=== PATIENT | male | born 1965 | race Caucasian/White ===

== ENCOUNTER → 2020-06-07 09:53 | Outpatient (BNVA) | payer MEDICARE, MEDICAID, SELFPAY | PROVIDERS: PCP Internal Medicine; Referring Provider Internal Medicine; Visit Provider Physician Assistant | DX: K59.09 Other constipation (principal); Z80.0 Family history of malignant neoplasm of digestive organs | CPT/HCPCS: 99212 ==

== ENCOUNTER → 2020-10-30 10:56 | Outpatient (BNVA) | payer MEDICARE, MEDICAID, SELFPAY | PROVIDERS: PCP Internal Medicine; Visit Provider Physician Assistant | DX: Z13.89 Encounter for screening for other disorder (principal) | CPT/HCPCS: Q3014 ==

== ENCOUNTER → 2021-11-19 11:43 | Outpatient (BNVA) | payer MEDICARE, MEDICAID, SELFPAY | PROVIDERS: PCP Internal Medicine; Referring Provider Internal Medicine; Visit Provider Physician Assistant | DX: K59.09 Other constipation (principal) | CPT/HCPCS: 99212 ==

== ENCOUNTER 2022-11-07 10:37 | Outpatient (RCR) | payer MEDICARE, MEDICAID, SELFPAY | END 2022-12-27 14:08 | disposition home or self-care (01) | LOC: HO.WCC 10:37 | PROVIDERS: PCP Internal Medicine; Visit Provider Surgery | DX: L89.153 Pressure ulcer of sacral region, stage 3 (principal); L89.313 Pressure ulcer of right buttock, stage 3; G80.9 Cerebral palsy, unspecified | CPT/HCPCS: 97597; 99212; 99213 ==

== ENCOUNTER → 2023-01-08 14:11 | Outpatient (BNVA) | payer MEDICARE, MEDICAID, SELFPAY | PROVIDERS: PCP Internal Medicine; Visit Provider Physician Assistant | DX: K59.09 Other constipation (principal) | CPT/HCPCS: 99212 ==

== ENCOUNTER 2023-09-15 11:12 | Outpatient (REF) | payer MEDICARE, MEDICAID, SELFPAY ==
[2023-09-16 08:28] LABS: HIV AB/AG Nonreactive (Nonreactive); HIV Num 1 0.07 S/CO (0.00-0.99); ~HepC Num1 0.17 S/CO (0.00-0.79); ~Hepatitis C Antibody Nonreactive (Nonreactive)
== END 2023-09-15 11:13 | disposition home or self-care (01) ==
LOC: HO.CHCLDS 11:12
PROVIDERS: Visit Provider Internal Medicine
DX: Z00.00 Encounter for general adult medical examination without abnormal findings (principal); Z11.4 Encounter for screening for human immunodeficiency virus [HIV]
CPT/HCPCS: 36415; 86803; 87389

== ENCOUNTER 2023-09-17 14:40 | Outpatient (AMB) | payer MEDICARE, MEDICAID, SELFPAY ==
--- NOTE | 2023-09-17 14:42 | MHC.OFFVIS ---
Intake Vital Signs 09/17/23 14:50 09/17/23 14:56 Height 5 ft 8 in 5 ft 8 in Weight 166 lb 166 lb BMI 25.2 25.2 BP 138/81 138/81 Blood Pressure Location Lt brachial Lt brachial Position Sitting Sitting Pulse 70 70 Intake Visit Reasons: Chronic Constipation Intake Note: Patient is seen in office for follow up visit, following chronic constipation. Pt c/o: since last visit pt is having normal bm, going one/two times daily Club Steward Required: No Accompanied by: Self / Same As Patient Allergies bee pollen [BEE STINGS] Allergy (Severe, Unverified 09/17/23 14:50) ANAPHYLAXIS bee stings Allergy (Unknown, Uncoded 09/17/23 14:50) Anaphylaxis Medication List - Last Reconciled 09/17/23 by Shannan Blanco PA-C acetaminophen ER 650 mg PO TID B comp we9-xahcy-J-biotin-zinc 1-60-300-12.5 qj-no-hvo-mg tabs PO clonazepam 0.5 mg PO BID PRN divalproex 500 mg PO TID docusate sodium (DOK) 0 mg PO epinephrine 0.3 mg IM Q4H PRN fluvoxamine ER 200 mg PO BEDTIME food supplemt, lactose-reduced (Ensure High Protein oral liquid) ea PO guaifenesin 400 mg PO Q4H haloperidol 5 mg PO BID lactulose PO linaclotide (Linzess) 290 mcg PO QAM magnesium hydroxide (Milk of Magnesia) 400 mg PO DAILY PRN melatonin 10 mg PO BEDTIME PRN omeprazole 20 mg PO DAILY polyethylene glycol 3350 (Miralax) 17 grams PO BID psyllium 1 packet PO DAILY psyllium seed (sugar) (Metamucil (sugar) oral powder) 1 tbsp PO DAILY sennosides (senna) 0 mg PO DAILY sertraline 50 mg PO DAILY sodium phosphates 19-7 gram/118 mL (Fleet Enema) 118 mL NM DAILY PRN vitamin B complex (Vitamins B Complex capsule) 1 cap PO DAILY HPI HPI Comments History of Present Illness Details 58-year-old male TBI- seen last 12/2022 with chronic constipation- he has had normal bowel once maybe 2 x a day- He had had some loose stool however lactulose was discontinued and has been on issue. Has no rectal bleeding. Taking Linzess, bowel regimen in place Appetite has been good No GI concerns- eating very well- We had the Cologuard 03/2023 He is here today with patient advocate, very supportive [facility] Medical History (Updated 09/18/23 @ 10:12 by Shannan Blanco PA-C) Assistance needed for ambulation and movement Dysphagia Chronic constipation OCD (obsessive compulsive disorder) Anxiety Delayed emotional development Surgical History (Updated 09/17/23 @ 14:46 by Shannan Blanco PA-C) Hx of colonoscopy No significant past surgical history Family History Unknown No problems noted. Social History Household Members: Other Household Members Other:: Longterm Housing Other:: Longterm Are you a primary managed care manager to a significant other at home: No Do you presently have visiting nurse or other home services: No Alcohol intake: never Current occupational status: disabled Review of Systems Const Details: Pt advocate All systems reviewed & are unremarkable except as noted in HPI and below Physical Exam Vital Signs: Last Vital Signs Pulse 70 09/17/23 14:56 BP 138/81 09/17/23 14:56 BMI result Body Mass Index 25.2 Const General: comfortable and well groomed Limitations: altered mental status and wheelchair Skin General skin exam: no rashes or lesions noted Psych Appearance: well kempt Assessment & Plan Assessment & Plan (1) Chronic constipation: Comment: Linzess 290 mcg-seems to have improved bowel routine however caretakers maintain a good bowel regimen-making sure it is adequate. No reported GI complaints Cologuard -negative Code(s): K59.09 - Other constipation (2) Screen for colon cancer: Code(s): Z12.11 - Encounter for screening for malignant neoplasm of colon Plan: Cologuard was negative Plan Continue plan of care may call with any concerns- Patient does not have to be brought into the office as he is unable to provide input. Discuss with advocate- Patient Instructions: Wheelchair assisted 58-year-old Gent-TBI- Continue usual medication-seems to be well managed Maintain high-fiber diet May call with any concerns- Coding Level of Care Code Est Pt Level 3 (34959) Diagnoses Chronic constipation K59.09 Screen for colon cancer Z12.11 Time Spent (min) 20 Comment Patient advocate, support
[2023-09-17 14:50] VITALS: BP 138/81; PULSE 70; BMI 25.2
[2023-09-17 14:56] VITALS: BP 138/81; PULSE 70; BMI 25.2
== END 2023-09-17 15:25 | disposition home or self-care (01) ==
PROVIDERS: PCP Internal Medicine; Visit Provider Physician Assistant
DX: K59.09 Other constipation (principal); Z12.11 Encounter for screening for malignant neoplasm of colon
CPT/HCPCS: 99213

== ENCOUNTER → 2023-09-17 14:40 | Outpatient (BNVA) | payer MEDICARE, MEDICAID, SELFPAY | PROVIDERS: PCP Internal Medicine; Visit Provider Physician Assistant | DX: Z12.11 Encounter for screening for malignant neoplasm of colon (principal); K59.09 Other constipation | CPT/HCPCS: 99212 ==

== ENCOUNTER 2023-09-23 11:39 | Outpatient (REF) | payer MEDICARE, MEDICAID, SELFPAY ==
[2023-09-23 14:24] LABS: Appearance Urine Clear; Color Urine Yellow; Glucose Urine UA Negative (Negative); Leukocyte Esterase Urine Negative (Negative); Nitrite Urine Negative (Negative); Urine Blood Negative (Negative); Urine Ketones Negative (Negative); Urine Protein Negative (Neg-Trace)
[2023-09-23 14:29] LABS: Bacteria Urine None Seen (None Seen); Hyaline Casts Urine 0-2 /LPF (0-2); RBC Urine 0-2 /HPF (0-2); Squamous Epithelial Cell Urine 0-2 /HPF (0-2); WBC Urine 0-5 /HPF (0-5)
[2023-09-23 18:13] LABS: Anion Gap 12 (12-20); Blood Urea Nitrogen 16 mg/dL (9-16); Calcium 8.5 mg/dL (8.4-10.2); Carbon Dioxide 26 mmol/L (22-29); Chloride 106 mmol/L (96-108); Estimated Glomerular Filt Rate > 60; Glucose Random 79 mg/dL (60-115); Sodium 140 mmol/L (135-145)
[2023-09-23 18:32] LABS: Prostate Specific Antigen Scr 0.45 ng/mL (<0.05-4.0)
[2023-09-24 09:18] LABS: HBS Num1 1.25 mIU/mL (0-7.99); HBc Num1 0.13 S/CO (0.00-0.79); Hepatitis B Core Antibody Nonreactive (Nonreactive); ~Hepatitis B Surface Antibody NONREACTIVE (Nonreactive)
== END 2023-09-23 11:40 | disposition home or self-care (01) ==
LOC: HO.CHCLNP 11:39
PROVIDERS: Visit Provider Internal Medicine
DX: Z00.00 Encounter for general adult medical examination without abnormal findings (principal); Z12.5 Encounter for screening for malignant neoplasm of prostate; Z11.59 Encounter for screening for other viral diseases; R35.0 Frequency of micturition; G80.4 Ataxic cerebral palsy; G80.1 Spastic diplegic cerebral palsy; G25.9 Extrapyramidal and movement disorder, unspecified; Z72.89 Other problems related to lifestyle
CPT/HCPCS: 36415; 80048; 81001; 83735; 84153; 86704; 86706

== ENCOUNTER 2024-09-16 10:57 | Outpatient (REF) | payer MEDICARE, MEDICAID, SELFPAY ==
--- OUTSIDE RECORDS SUMMARY | 2024-09-16 13:04 | XMS_ITS | Encounter Summary ---
Author Organization [employer] Address [address] [place] [address] Care Team Providers Care Dial Brusher Name Role Phone Jose Perry MD Primary Care Provider [phone]- [phone] Reason for Visit * Reason Onset Date Comments ER Follow-up 02/18/2023 Encounter Details Date Type Department Care Team ([facility] st Contact Info) Description 02/18/2023 Telephone [facility] CHC MED & PEDS [address] [place], [place] [phone] Jose Perry MD [address] [place] [address] ER Follow-up Social History Tobacco Use Types Packs/Day Years Used Date Smoking Tobacco: Never Smokeless Tobacco: Never Sex and Gender Information Value Date Recorded Sex Assigned at Male 05/20/2022 10:32 AM EDT Legal Sex Male 10:32 AM EDT Gender Identity Male 05/20/2022 10:32 AM EDT Sexual Orientation Choose not to disclose 2021 10:32 AM EDT documented as of this encounter Miscellaneous Notes * Telephone Encounter - Karlee Gaitan RN - 02/20/2023 9:48 AM EDT T/C to [phone] for below message, Brandt states pt. Had fall and had Ed visit at [facility]. Pt. Is doing good right now. Pt. Schedule for Ed follow up on . Advised to bring nearest Ed in case of any new or worsening symptoms. SANTI malloy is in pt.'s chart. * Telephone Encounter - Destinee Love - 02/18/2023 2:09 PM EDT Tc from brandt with [facility] mental health calling to report a ED visit. [facility] for a [facility]. Please contact brandt at [phone] documented in this encounter Plan of Treatment Upcoming Encounters Date Type Department Care Team (Late st Contact Info) Description 11/04/2024 10:00 AM EDT Clinical Support [facility] DIABETES/NTRN [address] [place], [place] [phone] Clau Saunders, RD [address] [place], [place] [phone] 11/16/2024 2:00 PM EDT Office Visit [facility] MED & PEDS [address] [place], [place] [phone] Jose Perry MD [address] [place] [address] documented as of this encounter Visit Diagnoses Not on filedocumented in this encounter Care Teams Dial Brusher Relationship Specialty Start Date End Date Jose Perry MD [address] [place] [address] PCP - General Internal Medicine 05/22/17 documented as of this encounter
--- OUTSIDE RECORDS SUMMARY | 2024-09-16 13:04 | XMS_ITS | Encounter Summary ---
Author Organization [employer] Address [address] [facility] 7[address] [place] [address] Care Team Providers Care Diesel Lube Tech Name Role Phone Jose Perry MD Primary Care Provider [phone]- [phone] Reason for Visit * Reason Onset Date Comments Med Refill 06/25/2022 Encounter Details Date Type Department Care Team (Late Contact Info) Description 06/25/2022 Telephone [facility] MEDICINE [address] [place], [place] [phone] Jose Perry MD [address] [place], [place] [phone] Med Refill Social History Tobacco Use Types Packs/Day Years Used Date Smoking Tobacco: Never Assessed Sex and Gender Information Value Date Recorded Sex Assigned at Male 05/20/2022 10:32 AM EDT Legal Sex Male 10:32 AM EDT Gender Identity Male 05/20/2022 10:32 AM EDT Sexual Orientation Choose not to disclose 2021 10:32 AM EDT documented as of this encounter Miscellaneous Notes * Telephone Encounter - Claudio Ramires - 06/25/2022 4:22 PM EST Tc from pt requesting medication ( Linzess 20 mcg ) Last seen on 03/04/[address] Perry documented in this encounter Plan of Treatment Upcoming Encounters Date Type Department Care Team (Late Contact Info) Description 11/04/2024 10:00 AM EDT Clinical Support [facility] CHC DIABETES/NTRN [address] [place], [place] [phone] Clau Saunders, RD [address] [place] [address] 11/16/2024 2:00 PM EDT Office Visit [facility] CHC MED & PEDS [address] [place] [address] Jose Perry MD [address] [place] [address] documented as of this encounter Visit Diagnoses Not on filedocumented in this encounter Care Teams Diesel Lube Tech Relationship Specialty Start Date End Date Jose Perry MD [address] [place] [address] PCP - General Internal Medicine 05/22/17 documented as of this encounter
--- OUTSIDE RECORDS SUMMARY | 2024-09-16 13:04 | XMS_ITS | Encounter Summary ---
Author Organization [employer] Address [address] [facility] 7[address] [place] [address] Care Team Providers Care Disc Ruler Operator Name Role Phone Jose Perry MD Primary Care Provider [phone]- [phone] Reason for Visit * Reason Onset Date Comments Medication Question 04/22/2023 Starch-Malto dextrin (Thick-It) powder Encounter Details Date Type Department Care Team ([facility] st Contact Info) Description 04/22/2023 Telephone [facility] CHC MED & PEDS [address] [place], [place] [phone] Jose Perry MD [address] [place] [address] Medication Question (Starch-Maltodextrin (Thick-It) powder) Social History Tobacco Use Types Packs/Day Years [...] encounter Miscellaneous Notes * Telephone Encounter - Jose Perry MD - 04/23/2023 1:10 PM EDT The order was modified. * Telephone Encounter - Yesika Collins - 04/22/2023 2:36 PM EDT Tc from pharmacy calling in regards to medication Starch-Maltodextrin (Thick-It) powder. States they need frequency directions as to how many times a day is needed. documented in this encounter Plan of Treatment Upcoming Encounters Date Type Department Care Team (Late st Contact Info) Description 11/04/2024 10:00 AM EDT Clinical Support [facility] DIABETES/NTRN [address] [place], [place] [phone] Clau Saunders, RD [address] [place], [place] [phone] 11/16/2024 2:00 PM EDT Office Visit [facility] MED & PEDS [address] [place], [place] [phone] Jose Perry MD [address] [place] [address] documented as of this encounter Visit Diagnoses Not on filedocumented in this encounter Care Teams Disc Ruler Operator Relationship Specialty Start Date End Date Jose Perry MD [address] [place], [place] [phone] PCP - General Internal Medicine 05/22/17 documented as of this encounter
--- OUTSIDE RECORDS SUMMARY | 2024-09-16 13:04 | XMS_ITS | Clinical Summary ---
Author Organization [facility] Address [address] [place] [address] Phone Care Team Providers Care Basket Machine Operator Name Role Phone Jose Perry MD Primary Care Provider [phone] -[phone] Social History Tobacco Use Types Packs/Day Years Used Date Smoking Tobacco: Never Assessed Sex and Gender Information Value Date Recorded Sex Assigned at Not on file Legal Sex Male 5:50 PM EST Gender Identity Not on file Sexual Orientation Not on file Plan of Treatment Upcoming Encounters Date Type Department Care Team ([facility] Contact Info) Description 11/01/2024 3:30 PM EDT Consult Orthopedic Surgery - [place] [phone] [phone] Ziyad Estrada, DPM [address] [address] Health Maintenance Due Date Last Done Comments DTaP,Tdap,and Td Vaccines (1 - Tdap) 1986 Hepatitis B Vaccines (1 of 3 - 19+ 3-dose series) 1986 Pneumococcal Vaccine: 50+ Ye ars (1 of 1 - PCV) 2017 Zoster Vaccines (1 of 2) 2017 Cholesterol Screening (Lipid Panel) 06/22/2022 Colorectal Cancer Screening: Colonoscopy 06/22/2022 Depression Screening 06/22/2022 HIV Screening 06/22/2022 Hepatitis C Screening 06/22/2022 Medicare Annual Wellness Visit 06/22/2022 Social Influencers of Health Screening 06/22/2022 COVID-19 Vaccine ( - 2023-2 5 season) 2024 Influenza Vaccine (#1) 2024 HIB Vaccines Aged Out No longer eligi ble based on patient's age to complete this topic HPV Vaccines Aged Out No longer eligi ble based on patient's age to complete this topic Hepatitis A Vaccines Aged Out No long er eligible based on patient's age to complete this topic IPV Vaccines Aged Out No longer eligi ble based on patient's age to complete this topic MMR Vaccines Aged Out No longer eligi ble based on patient's age to complete this topic Meningococcal ACWY Vaccine Aged Out N o longer eligible based on patient's age to complete this topic Meningococcal B Vacine Aged Out No lo nger eligible based on patient's age to complete this topic Pneumococcal Vaccine: Pediat rics (0 to 5 Years) and At-Risk Patients (6 to 64 Years) Aged Out No longer eligible b ased on patient's age to complete this topic RSV Immunization Patients Un glendy 20 months Aged Out No longer eligible b ased on patient's age to complete this topic Varicella Vaccines Aged Out No longer eligible based on patient's age to complete this topic Insurance MEDICARE MEDICAID - [place] Care Teams Basket Machine Operator Relationship Specialty Start Date End Date Jose Perry MD [address] [place] [id number] PCP - General Internal Medicine 06/30/24
--- OUTSIDE RECORDS SUMMARY | 2024-09-16 13:04 | XMS_ITS | Encounter Summary ---
Author Organization [employer] Address [address] [facility] [address] [place] [address] Care Team Providers Care Media Services Director Name Role Phone Jose Perry MD Primary Care Provider [phone]- [phone] Reason for Visit * Reason Onset Date Comments ER Follow-up 10/14/2023 Encounter Details Date Type Department Care Team ([facility] Contact Info) Description 10/14/2023 Telephone [facility] MEDICINE [address] [place] [address] oJse Perry MD [address] [place] [address] ER Follow-up Social History Tobacco Use Types Packs/Day Years Used Date Smoking Tobacco: Never Smokeless Tobacco: Never Housing Stability Answer Date Recorded What is your housing situation today? I have ivette giles 09/10/[address] you li ve. Do you have problems with any of the following? None of the above 09/10/2023 Food Insecurity Answer Date Recorded Within the past 12 months, y ou worried that your food would run out before you got money to buy more: Never True 09/10/2023 Within the past 12 months,th e food you bought just didn't last and you didn't have enough money to get more: Never True Transportation Answer Date Recorded In the past 12 months, has l ack of transportation kept you from medical appts, meetings, work or from getting things needed for daily living? No 05/06/2023 Utilities Answer Date Recorded In the past 12 months, has t he electric, gas, oil or water company threatened to shut off services in your home? No 05/06/2023 Sex and Gender Information Value Date Recorded Sex Assigned at Male 05/20/2022 10:32 AM EDT Legal Sex Male 10:32 AM EDT Gender Identity Male 05/20/2022 10:32 AM EDT Sexual Orientation Choose not to disclose 2021 10:32 AM EDT documented as of this encounter Miscellaneous Notes * Telephone Encounter - Marietta Phillip RN - 10/15/2023 4:20 PM EDT TC placed to Rony regarding message below. Rony states patient's L arm appears to be slowly improving. It is not red anymore and is now a normal color. It is still mildly swollen. Scheduled for office visit with Dr. Park next , 10/23/23, @ 1pm. Advised to bring patient to the ED or be intouch with us if symptoms worsen before this visit. Expressed understanding. Routing to Dr. Dollor review. ----- Message from Becki Park MD sent at 10/13/2023 6:13 PM EDT ----- Please do a follow up call on 10/14 to patient`s staff to see if his left forearm cellulitis is improving on bactrim. Also Please schedule with me next week to ensure improvement .( In like 6-8 days).Thanks * Telephone Encounter - Casey Monteiro - 10/14/2023 3:45 PM EDT Patient calling to report ED visit on : Date: 10/12 Hospital: [facility] Seen for: Rash Patient advised will forward to team nurse for follow up documented in this encounter Plan of Treatment Upcoming Encounters Date Type Department Care Team (Late st Contact Info) Description 11/04/2024 10:00 AM EDT Clinical Support [facility] DIABETES/NTRN [address] [place] [address] Clau Saunders, CAITLIN [address] [place] [address] 11/16/2024 2:00 PM EDT Office Visit [facility] CHC MED & PEDS [address] [place], [place] [phone] Jose Perry MD [address] [place], [place] [phone] documented as of this encounter Visit Diagnoses Not on filedocumented in this encounter Care Teams Media Services Director Relationship Specialty Start Date End Date Jose Perry MD [address] [place], [place] [phone] PCP - General Internal Medicine 05/22/17 documented as of this encounter
--- OUTSIDE RECORDS SUMMARY | 2024-09-16 13:04 | XMS_ITS | Clinical Summary ---
Author Organization [employer] Address [address] 7[address] [place] [address] Care Team Providers Care Prop Making Supervisor Name Role Phone Jose Perry MD Primary Care Provider [phone]- [phone] Allergies Active Allergy Reactions Criticality Noted Date Comments Honey Bee Venom 10/31/2022 Medications Linzess 290 MCG capsule Take 1 capsule by mouth 1 (one) time each day. 09/20/19 23 Active sertraline (Zoloft) 50 MG tablet Take 1 tablet by mouth 1 (one) time each day. 10/13/19 23 Active clonazePAM (KlonoPIN) 0.5 MG tablet Take 1 tablet by mouth 2 times daily. At 8 am and 3 pm 10/01/19 23 Active divalproex (Depakote) 500 MG EC tablet Take 3 tablets by mouth in the morning. 09/19/19 23 Active haloperidol (Haldol) 5 MG tablet Take 1 tablet by mouth 3 times daily. 09/19/19 23 Active haloperidol (Haldol) 5 MG tablet Take 1 tablet by mouth if needed in the morning and at bedtime. Active Hydroactive Dressings (DynaDerm Hydrocolloid 2 x2 ) misc Apply 2 Units topically every other day. 60 each 11/01/19 23 Active Starch-Maltodex danita (Thick-It) powder 1-2 tbsp to dilute in 8 oz of water/juice as needed. 1020 g 11 04/17/20 23 Active Starch-Maltodex danita powderIndicatio ns:Ataxic cerebral palsy (CMS/HCC) 1-2 tbsp to dilute in 9 oz 4 times a day in Juice or Water as needed 1020 g 04/23/20 23 Active diazePAM (Valium) 10 MG tablet Take 1 tablet by mouth if needed each day. 1 hour prior to dental appointment/proced ure 04/28/20 23 Active zolpidem (Ambien) 10 MG tablet Take 1 tablet by mouth at bedtime. 06/11/20 23 Active melatonin 10 MG tabletIndicatio ns:Primary insomnia 1 tab at bedtime 30 tablet 11 06/24/20 23 Active Sodium Chloride (Wound Wash Saline) 0.9 % solutionIndicat ions:Laceration of left lower extremity, initial encounter To cleanse the lesions of the left lower limb daily 210 mL 07/03/20 23 Active B Complex Vitamins (vitamin B complex) tabletIndicatio ns:Annual physical exam Take 1 tablet by mouth in the morning. 30 tablet 11 09/15/19 24 Active LORazepam (Ativan) 2 MG tablet Take 2 tablets (4 mg) by mouth 1 (one) time for 1 dose. 2 tabs 30 minutes prior to medical appointment and Blood draw. 10 tablet 12/29/19 24 Active senna (Senokot) 8.6 MG tablet Take 1 tablet (8.6 mg) by mouth at bedtime. Hold for loose stooles 120 tablet 1 03/03/20 24 Active Ascorbic Acid (vitamin C) 250 MG tabletIndicatio ns:Laceration of left lower extremity, initial encounter TAKE 1 TABLET BY MOUTH EVERY DAY 30 tablet 11 05/13/20 24 Active psyllium (Metamucil) 51.7 % packet DILUTE 1 PACKET INTO 8 OZ OF ORANGE JUICE DAILY 30 packet 2 06/11/20 24 Active magnesium hydroxide (Milk of Magnesia) 400 MG/5ML suspensionIndic ations:Slow transit constipation TAKE 30 ML BY MOUTH EVERY OTHER DAY 360 mL 11 06/23/20 24 Active SB Fib Lax Mcandrews 33 % powder MIX 17 G INTO 8 OZ OF ORANGE JUICE DAILY 570 g 1 06/30/20 24 Active baclofen (Lioresal) 10 MG tabletIndicatio ns:Ataxic cerebral palsy (CMS/HCC),Cereb ral palsy with spastic diplegia (CMS/HCC) TAKE 1/2 TABLET BY MOUTH THREE TIMES A DAY 45 tablet 3 07/08/20 24 Active docusate sodium (Colace) 100 MG tabletIndicatio ns:Slow transit constipation TAKE 1 TABLET BY MOUTH TWICE DAILY IN THE AM AND AT BEDTIME, HOLD IF LOOSE STOOL, CRUSH TABLET AND DRINK WITH PLENTY OF WATER 180 tablet 3 07/08/20 24 Active omeprazole (PriLOSEC) [address] capsuleIndicati ons:Gastroesoph ageal reflux disease without esophagitis TAKE 1 CAPSULE BY MOUTH EVERY DAY BEFORE BREAKFAST. DO NOT CRUSH OR CHEW. 90 capsule 3 07/08/20 24 Active glycerin (GNP Glycerin, Adult,) 2.1 g suppositoryIndi cations:Chronic idiopathic constipation ADMINISTER 1 ER SUPPOSITORY RECTALLY IF NEEDED ONCE A DAY PER BOWEL REGIMEN 30 suppository 3 07/30/19 25 Active Dimethicone-Zin c Oxide 5-5 % creamIndication s:Wound of sacral region, initial encounter,Other urinary incontinence Apply three times daily after toileting to skin folds and perineum as needed and let air dry 118.28 mL 07/30/19 25 Active EPINEPHrine (Epipen) 0.3 MG/0.3ML injection syringeIndicati ons:Allergy to honey bee venom Inject 0.3 mL (0.3 mg) as directed 1 (one) time for 1 dose. Use 1 pen intramuscularly 0.3 mL 07/30/19 25 Active bacitracin 500 UNIT/GM ointment Apply dime size amount topically to superficial cuts and wounds twice daily as needed 14 g 07/30/19 25 Active Multiple Vitamin (Multi-Vitamin) tabletIndicatio ns:Normocytic anemia TAKE 1 TABLET BY MOUTH EVERY DAY 30 tablet 5 08/12/19 25 Active Active Problems Problem Noted Date Diagnosed Date Cellulitis of left elbow 11/28/2023 Assessment & Plan (12/19/2023 5:10 PM EDT): -Redness has diminished , however, swelling persists -Pt was advised to apply warm compresses to aid in diminishing. -Order protective bandaging for elbow to prevent damage or irritation. -If warm compresses are unable to help : Refer to Orthopedic Assessment & Plan (12/01/2023 3:02 PM EDT): Review previous records. Will provide pt with prolonged duration of antibiotics of Cephalexin and Bactrim F/U on Friday. 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 He was at his baseline, decission of not performing a ct scan was due to clinical finding and low impact trauma. Since discharge patient has remained at baseline, no fever/chills. Sacral wound 10/31/2022 Assessment & Plan (10/31/2022 3:30 PM EDT): Patient with 2 ulcers on sacral region upon examination .7x.4 and 1x1cm. Will refer to Wound care clinic at [place] and send Hydrocolloid. Will hold off on antibiotics due to no sign of infection. Advised to RTC if signs of infection. Urinary incontinence 10/31/2022 Assessment & Plan (10/31/2022 3:30 PM EDT): Patient with urinary incontinence for x3 days. Will send urine culture. 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 [address] [place] [address] Jose Perry MD Durable Medical Equipment 08/12/2024 Refill [facility] [address] [place] [address] Jose Perry MD Normocytic anemia 08/12/2024 Telephone [facility] [address] [place] [address] Jose Perry MD recall appt (Pt needs appt) 08/03/2024 Telephone [facility] [address] [place] [address] Jose Perry MD 07/30/2024 Orders Only [facility] [address] [place] [address] Jose Perry MD Chronic idiopathic constipation (Primary Dx); Hypoproteinemia (CMS/HCC); Wound of sacral region, initial encounter; Other urinary incontinence; Allergy to honey bee venom 07/29/2024 3:30 PM EST Clinical Support [facility] [address] [place] [address] Weight loss (Primary Dx) 07/29/2024 Travel 07/29/[address] [facility] [address] [place], [place] [phone] Jose Perry MD Referral 07/22/2024 Refill [facility] [address] [place] [address] Jose Perry MD 07/16/2024 2:00 PM EST Office Visit [facility] [address] [place] [address] Jose Perry MD Gastroesophageal reflux disease without esophagitis (Primary Dx); Ataxic cerebral palsy (CMS/HCC); Martinez's esophagus without dysplasia; Wound of sacral region, initial encounter 07/16/2024 Travel 07/08/2024 Refill [facility] [address] [place] [address] Jose Perry MD Ataxic cerebral palsy (CMS/HCC); Cerebral palsy with spastic diplegia (CMS/HCC); Slow transit constipation; Gastroesophageal reflux disease without esophagitis 07/08/2024 Patient Outreach [facility] [address] [place] [address] Jose Perry MD Pre-visit Planning ([facility] unable to reach [facility]) 06/29/2024 Refill [facility] [address] [place] [address] Jose Perry MD 06/24/2024 Refill [facility] [address] [place] [address] Jose Perry MD 06/23/[address] [facility] [address] [place], [place] [phone] Jose Perry MD Medication Question 06/22/2024 Refill [facility] [address] [place] [address] Jose Perry MD Slow transit constipation from Last 3 Months Immunizations Name Administration Dates Next Due Hep B, adult 10/01/2023 Influenza injectable quadriv alent IIV4 with preservative 04/13/2019,05/22/2017 Influenza injectable quadriv alent preservative free 05/30/2022,04/20/2021,04/17/2020,2018,08/17/2016 Influenza, IIV3, injectable 04/24/2023, 2,06/25/2011 Influenza, Injectable, MDCK, preservative free 05/25/2024 Moderna Covid-19 Vaccine 12+ 04/24/2023,02/01/20 22,07/06/2021 Tdap 05/14/2019,08/11/2018 Zoster, Recombinant 11/17/2023,09/15/2023 Social History Tobacco Use Types Packs/Day Years Used Date Smoking Tobacco: Never Smokeless Tobacco: Never Tobacco Cessation:Counseling Given: Not Answered Housing Stability Answer Date Recorded What is [...] not to disclose 2021 10:32 AM EDT Last Filed Vital Signs Vital Sign Reading Time Taken Comments Blood Pressure 130/76 12/19/2023 11:42 AM EDT Pulse 78 12/19/2023 11:42 AM EDT Temperature 37.1 ??C (98.8 ??F) 12/19/2023 11:42 AM E DT Respiratory Rate 18 12/19/2023 11:42 AM EDT Oxygen Saturation 98% 12/19/2023 11:42 AM EDT Inhaled Oxygen Concentration - - Weight 88.5 kg (195 lb) 08/23/2024 11:49 AM EST Height 172.7 cm (5' 8 ) 08/23/2024 11:49 AM EST Body Mass Index 29.65 08/23/2024 11:49 AM EST Plan of Treatment Upcoming Encounters Date Type Department Care Team (Late st Contact Info) Description 11/04/2024 10:00 AM EDT Clinical Support [facility] [address] [place] [address] Clau Saunders, RD [address] [place], [place] [phone] 11/16/2024 2:00 PM EDT Office Visit [facility] [address] [place] [address] Jose Perry MD [address] [place] [address] Health Maintenance Due Date Last Done Comments CT Colonography 1967 Colonoscopy 1967 Depression Screening 1967 FIT 1967 FOBT 1967 Lipid Panel 1967 Sigmoidoscopy 1967 Alcohol/Substance Use Screening 1979 Pneumococcal Vaccine: 50+ Years (1 of 1 - PCV) 2017 Hepatitis B Vaccines (2 of 3 - 19+ 3-dose series) 10/29/2023 10/01/2023 COVID-19 Vaccine (2023- season) 2024 04/24/2023, 01/31/2022, 07/06/2021, Additional history exists SDOH Screening 09/10/2024 09/10/2023 Tobacco Screening 07/16/2025 07/16/2024 Colorectal Cancer Screening 03/29/2026 FIT DNA/Cologuard 03/29/2026 03/29/2023 DTaP/Tdap/Td Vaccines (3 - Td or Tdap) 05/14/2029 05/14/2019, 08/11/2018 RSV Patients and Patients Aged 60 years or older (1 - 1-dose 75+ series) 2042 HIV Screening Completed 09/15/2023 Hepatitis C Screening Completed 09/15/2023 Zoster Vaccines Completed 11/17/2023, 09/15/2023 Influenza Vaccine Completed 05/25/2024, , 05/30/2022, Additional history exists HIB Vaccines Aged Out No longer eligi [...] patient's age to complete this topic Meningococcal Vaccine Aged Out No lázaro richard eligible based on patient's age to complete this topic RSV under 20 months Aged Out No longe r eligible based on patient's age to complete this topic Rotavirus Vaccines Aged Out No longer eligible based on patient's age to complete this topic Procedures Procedure Name Priority Date/Time Associated Diagnosis Comments HEPATITIS C ANTIBODY Routine 09/15/2023 11:14 AM EST Annual physical exam HIV 1/2 ANTIGEN/ANTIBODY, FOURTH GENERATION W/RFL Routine 09/15/2023 11:14 AM EST Annual physical exam from Last 3 Months or Most Recently Relevant to Health Maintenance Results * Hepatitis C Ab (09/15/2023 11:14 AM EST) Hepatitis C Antibody Nonreactive Nonreactive [facility] Comment:Antibodies to HCV no t detected; does not exclude early acuteHCV infection. Blood Venous blood specimen / Unknown 09/15/2023 11:14 AM EST 09/15/2023 2:35 PM EST Jose Perry MD LAB BLOOD ORDERABLES Final Result [facility] [address] [place] [phone] * HIV-1/2 Antigen and Antibodies, Fourth Generation, with Reflexes (09/15/2023 11:14 AM EST) HIV AB/AG Nonreactive Nonreactive [facility] Comment:HIV-1 p24 Ag and/or HIV-1/HIV-2 Ab not detected.A test result that is nonreactive does not exclude thepossibility of exposure to or infection with HIV-1 and/orHIV-2. Nonreactive results in this assay for individualswith prior exposure to HIV-1 and/or HIV-2 may be due toantigen and antibody levels that are below the limit ofdetection of this assay.The [employer] HIV Ag/Ab Combo assay result andsupplemental assay results should be interpreted inconjunction with the patient's clinical presentation,history and other laboratory results. If the results areinconsistent with clinical evidence, additional testing issuggested to confirm the result. Blood Venous blood specimen / Unknown 09/15/2023 11:14 AM EST 09/15/2023 2:35 PM EST Jose Perry MD LAB BLOOD ORDERABLES Final Result [facility] [address] [place] [address] [phone] from Last 3 Months or Most Recently Relevant to Health Maintenance Insurance [facility] [employer] [place] [phone] Care Teams Prop Making Supervisor Relationship Specialty Start Date End Date Jose Perry MD [address] [place] [phone] PCP - General Internal Medicine 05/22/17
--- OUTSIDE RECORDS SUMMARY | 2024-09-16 13:04 | XMS_ITS | Encounter Summary ---
Author Organization [employer] Address [address] [facility] [address] [place] [address] Care Team Providers Care Cadd Manager Name Role Phone Jose Perry MD Primary Care Provider +1- [phone] Reason for Visit * Reason Onset Date Comments Durable Medical Equipment 04/05/2024 Encounter Details Date Type Department Care Team ([facility] st Contact Info) Description 04/05/2024 Telephone [facility] [address] [place] [address] Jose Perry MD [address] [place] [address] Durable Medical Equipment Social History Tobacco Use Types Packs/Day Years [...] encounter Miscellaneous Notes * Telephone Encounter - Jacqui Cole LPN - 04/05/2024 4:53 PM EDT Rx generated and Faxed to [facility] from Zelda the composite engineer at the [facility] calling to request pull ups size medium and reusable bed pads * Telephone Encounter - Casey Monteiro - 04/05/2024 12:28 PM EDT Tc from Zelda the composite engineer at the [facility] calling to request pull ups size medium and reusable bed pads documented in this encounter Plan of Treatment Upcoming Encounters Date Type Department Care Team (Late st Contact Info) Description 11/04/2024 10:00 AM EDT Clinical Support [facility] [address] [place] [address] Clau Saunders, RD [address] [place] [address] 11/16/2024 2:00 PM EDT Office Visit [facility] [address] [place] [address] Jose Perry MD [address] [place] [address] documented as of this encounter Visit Diagnoses Diagnosis Ataxic cerebral palsy (CMS/HCC) Unspecified infantile cerebral palsy documented in this encounter Care Teams Cadd Manager Relationship Specialty Start Date End Date Jose Perry MD [address] [place] [address] PCP - General Internal Medicine 11/2/17 documented as of this encounter
--- OUTSIDE RECORDS SUMMARY | 2024-09-16 13:04 | XMS_ITS | Encounter Summary ---
Author Organization [employer] Address [address] [facility] 7t [place] [address] Care Team Providers Care Abstract Checker Name Role Phone Jose Perry MD Primary Care Provider +1- [phone] Reason for Visit * Reason Onset Date Comments Med Refill 06/14/2024 Encounter Details Date Type Department Care Team ([facility] Contact Info) Description 06/14/2024 Telephone [facility]EDS [address] [place], [place] [phone] Jose Perry MD [address] [place] [address] Med Refill Social History Tobacco Use Types [...] encounter Miscellaneous Notes * Telephone Encounter - Arleen Thurston LPN - 06/14/2024 11:37 AM EST Medication was sent to [facility] on 06/11/24. * Telephone Encounter - Alejandra Duke - 06/14/2024 11:09 AM EST TC from [facility] requesting medication refill. Medications needing refill : psyllium (Metamucil) 51.7 % packet To be sent to: [facility] [address] [place] [address] documented in this encounter Plan of Treatment Upcoming Encounters Date Type Department Care Team (Late st Contact Info) Description 11/04/2024 10:00 AM EDT Clinical Support [facility] [address] [place] [address] Clau Saunders, RD [address] [place] [address] 11/16/2024 2:00 PM EDT Office Visit [facility] [address] [place] [address] Jose Perry MD [address] [place] [address] documented as of this encounter Visit Diagnoses Not on filedocumented in this encounter Care Teams Abstract Checker Relationship Specialty Start Date End Date Jose Perry MD [address] [place] [address] PCP - General Internal Medicine 05/22/17 documented as of this encounter
--- OUTSIDE RECORDS SUMMARY | 2024-09-16 13:04 | XMS_ITS | Encounter Summary ---
Author Organization [employer] Address [address] [facility] [address] [place] [address] Care Team Providers Care Community Program Assistant Name Role Phone Jose Perry MD Primary Care Provider +1- [phone] Encounter Details Date Type Department Care Team ([facility] st Contact Info) Description 05/02/2023 Orders Only [facility] MED & PEDS [address] [place], [place] [phone] Jose Perry MD [address] [place] [address] Hypoproteinemia (CMS/HCC) Social History Tobacco Use Types Packs/Day Years Used Date Smoking Tobacco: Never Smokeless Tobacco: Never Housing Stability Answer Date Recorded What is your housing situation today? Not on gelacio e 05/06/[address] you li ve. Do you have problems with any of the following? None of the above 05/06/2023 Food Insecurity Answer Date Recorded Within the past 12 months, y ou worried that your food would run out before you got money to buy more: Not on file 05/06/2023 Within the past 12 months,th e food [...] AM EDT documented as of this encounter Plan of Treatment Upcoming Encounters Date Type Department Care Team (Late st Contact Info) Description 11/04/2024 10:00 AM EDT Clinical Support [facility] DIABETES/NTRN [address] [place], [place] [phone] Clau Saunders, RD [address] [place] [address] 11/16/2024 2:00 PM EDT Office Visit [facility] [address] [place], [place] [phone] Jose Perry MD [address] [place] [address] documented as of this encounter Visit Diagnoses Diagnosis 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
--- OUTSIDE RECORDS SUMMARY | 2024-09-16 13:04 | XMS_ITS | Encounter Summary ---
Author Organization [employer] Address [address] [facility] 7t [place] [address] Care Team Providers Care Lpn Cma Name Role Phone Jose Perry MD Primary Care Provider +1- [phone] Reason for Visit * Reason Onset Date Comments Medication Question 09/16/2023 Encounter Details Date Type Department Care Team ([facility] st Contact Info) Description 09/16/2023 Telephone [facility] MED[facility] [address] [place] [address] Jose Perry MD [address] [place] [address] Medication Question Social History Tobacco Use Types Packs/Day Years [...] Telephone Encounter - Marietta Phillip RN - 09/17/2023 4:03 PM EST TC returned to Rony regarding message below. Rony states that patient's father is concerned aboutpatient's frequent urination and wants to know if patient would benefit from assessing his prostate, from a possible referral to urology, and from the supplements listed below: Van Buren Prostate and Super Beta Prostate. Rony states more frequent urination has been going on for about a year but was not reported or assessed at recent PE. Advised that patient has lab orders from 10/02/22 that do not appear to have been completed that include a PSA and patient could still complete these labs if desired. Patient scheduled for f/u with Dr. Perry on 10/01/23 @ 11:15am to assess urinary frequency. Rony states patient will complete outstanding labs prior to visit. Routing to PCP for review. Assess his prostate to see if he would benefit from a supplement. Supplements are Van Buren prostate and super beta prostate. Please contact Rony at [phone]. * Telephone Encounter - Da Morataya - 09/16/2023 10:46 AM EST Assess his prostate to see if he would benefit from a supplement. Supplements are Van Buren prostate and super beta prostate. Please contact Rony at [phone]. documented in this encounter Plan of Treatment Upcoming Encounters Date Type Department Care Team (Late st Contact Info) Description 11/04/2024 10:00 AM EDT Clinical Support [facility] DI[facility]/NTRN [address] [place], [place] [phone] Clau Saunders RD [address] [place], [place] [phone] 11/16/2024 2:00 PM EDT Office Visit [facility] MED & PEDS [address] [place] [address] Jose Perry MD [address] [place] [address] documented as of this encounter Visit Diagnoses Not on filedocumented in this encounter Care Teams Lpn Cma Relationship Specialty Start Date End Date Jose Perry MD [address] [place] [address] PCP - General Internal Medicine 05/22/17 documented as of this encounter
--- OUTSIDE RECORDS SUMMARY | 2024-09-16 13:04 | XMS_ITS | Encounter Summary ---
Author Organization [employer] Address [address] [facility] 7t [place] [address] Care Team Providers Care Outreach Analyst Name Role Phone Jose Perry MD Primary Care Provider Encounter Details Date Type Department Care Team ([facility] Contact Info) Description 03/12/2023 Orders Only [facility] [address] [place] [address] Jose Perry MD [address] [place], [place] [phone] Chronic idiopathic constipation Social History Tobacco Use Types Packs/Day Years [...] EDT Clinical Support [facility] DI[facility]/NTRN [address] [place], [place] [phone] Clau Sa[address] [place], [place] [phone] 11/16/2024 2:00 PM EDT Office Visit [facility] [address] [place] [address] Jose Perry MD [address] [place], [place] [phone] documented as of this encounter Visit Diagnoses Diagnosis Chronic idiopathic constipation Unspecified constipation documented in this encounter Care Teams Outreach Analyst Relationship Specialty Start Date End Date Jose Perry MD [address] [place] [address] PCP - General Internal Medicine 05/22/17 documented as of this encounter
--- OUTSIDE RECORDS SUMMARY | 2024-09-16 13:04 | XMS_ITS | Encounter Summary ---
Author Organization [employer] Address [facility] [address] [place] [address] Care Team Providers Care Table Assembler Metal Name Role Phone Jose Perry MD Primary Care Provider +1 [phone] Encounter Details Date Type Department Care Team ([facility] st Contact Info) Description 09/18/2023 Orders Only [facility] CHC MED & PEDS [address], [place] [phone] Jose Perry MD 505 [place] [address] Frequent urination (Primary Dx); Ataxic cerebral palsy (CMS/HCC); Cerebral palsy with spastic diplegia (CMS/HCC) Social History Tobacco Use Types Packs/Day [...] Description 11/04/2024 10:00 AM EDT Clinical Support [facility] DIABETES/NTRN [address], [place] [phone] Clau Saunders, RD [address] [place], [place] [phone] 11/16/2024 2:00 PM EDT Office Visit [facility] MED & PEDS [address], [place] [phone] Jose Perry MD [address] [place], [place] [phone] documented as of this encounter Procedures Procedure Name Priority Date/Time Associated Diagnosis Comments PSA, SCREEN Routine 09/23/2023 4:14 PM EST Frequent urination URINALYSIS, COMPLETE, WITH REFLEX TO CULTURE Routine 09/23/2023 9:50 AM EST Frequent urination documented in this encounter Results * PSA, Screen (09/23/2023 4:14 PM EST) PSA, Total 0.45 <0.05 - 4.0 ng/mL [facility] Comment:PSA methodology: Abb maria a Rizo i ChemiluminescentMicroparticle Immunoassay (CMIA) Blood Venous blood specimen / Unknown 09/23/2023 4:14 PM EST 09/23/2023 5:30 PM EST us Jose Perry MD LAB BLOOD ORDERABLES Final Result [facility] [address] [place] [address] [phone] * Urinalysis, Complete, with Reflex to Culture (09/23/2023 9:50 AM EST) Color Urine Yellow [facility] Appearance Urine Clear [facility] PH 6.0 5.0 - 9.0 [facility] Glucose Urine UA Negative Negative mg/dL [facility] Urine Blood Negative Negative [facility] Specific [place] - Urine 1.010 1.005 - 1.025 [facility] Urine Protein Negative Neg-Trace mg/dL [facility] Urine Ketones Negative Negative mg/dL [facility] Nitrite Urine Negative Negative [facility] Leukocyte Esterase Urine Negative Negative [facility] RBC Urine 0-2 0 - 2 /HPF [facility] Urine WBC 0-5 0 - 5 /HPF [facility] Urine Squamous Epithelial Cell 0-2 0 - 2 /HPF [facility] Urine Bacteria None Seen None Seen [facility] Hyaline Casts, Urine 0-2 0 - 2 /LPF [facility] Urine 09/23/2023 9:50 AM EST 09/23/2023 2:14 PM EST Narrative [facility] - 09/23/2023 2:30 PM EST [id number], Clean Catch Jose Perry MD LAB URINE ORDERABLES Final Result Performing Organization Address City/State/[facility] Co de Phone Number [facility] [address] [place] [address] [phone] documented in this encounter Visit Diagnoses Diagnosis Frequent urination- Primary Urinary frequency 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
--- OUTSIDE RECORDS SUMMARY | 2024-09-16 13:04 | XMS_ITS | Encounter Summary ---
Author Organization [employer] Address 75 [facility] 7t [place] [address] Care Team Providers Care Batch Records Clerk Name Role Phone Jose Perry MD Primary Care Provider Encounter Details Date Type Department Care Team (Late Contact Info) Description 04/10/2023 Orders Only [facility] MED & PEDS [address] [place], [place] [phone] Jose Perry MD [address] [place], [place] [phone] Wound of sacral region, initial encounter (Primary Dx); Other urinary incontinence; Ataxic cerebral palsy (CMS/HCC) Social History Tobacco Use Types Packs/Day [...] 10:00 AM EDT Clinical Support [facility] DIABETES/NTRN [address] [place], [place] [phone] Clau Saunders, CAITLIN [address] [place] [address] 11/16/2024 2:00 PM EDT Office Visit [facility] MED & PEDS [address] [place], [place] [phone] Jose Perry MD [address] [place] [address] documented as of this encounter Visit Diagnoses Diagnosis Wound of sacral region, initial encounter- Primary Other urinary incontinence 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
--- OUTSIDE RECORDS SUMMARY | 2024-09-16 13:04 | XMS_ITS | Encounter Summary ---
Author Organization [employer] Address 75 [facility] 7t [place] [address] Care Team Providers Care Jute Bag Clipper Name Role Phone Jose Perry MD Primary Care Provider +1- [phone] Reason for Visit * Reason Onset Date Comments Med Refill 12/12/2022 Encounter Details Date Type Department Care Team ([facility] st Contact Info) Description 12/12/2022 Telephone [facility] MEDICINE [address] [place] [address] Jose Perry MD [address] [place] [address] Med Refill Social History Tobacco Use Types Packs/Day Years Used Date Smoking Tobacco: Never Smokeless Tobacco: Never Sex and Gender Information Value Date Recorded Sex Assigned at Male 05/20/2022 10:32 AM EDT Legal Sex Male 10:32 AM EDT Gender Identity Male 05/20/2022 10:32 AM EDT Sexual Orientation Choose not to disclose 2021 10:32 AM EDT COVID-19 Exposure Response Date Recorded In the last 10 days, have yo u been in contact with someone who was confirmed or suspected to have Coronavirus/COVID-19? No / Unsure 11/28/2022 1:43 PM EDT documented as of this encounter Miscellaneous Notes * Telephone Encounter - Claudio Ramires - 12/12/2022 11:39 AM EDT Tc from pt requesting med refill magnesium hydroxide (Milk of Magnesia) 400 MG/5ML suspension documented in this encounter Plan of Treatment Upcoming Encounters Date Type Department Care Team (Late st Contact Info) Description 11/04/2024 10:00 AM EDT [facility] [address] [place], [place] [phone] Clau Saunders, RD [address] [place], [place] [phone] 11/16/2024 2:00 PM EDT Office [facility] MED [facility]EDS [address] [place], [place] [phone] Jose Perry MD [address] [place] [address] documented as of this encounter Visit Diagnoses Not on filedocumented in this encounter Care Teams Jute Bag Clipper Relationship Specialty Start Date End Date Jose Perry MD [address] [place], [place] [phone] PCP - General Internal Medicine 05/22/17 documented as of this encounter
--- OUTSIDE RECORDS SUMMARY | 2024-09-16 13:04 | XMS_ITS | Encounter Summary ---
Author Organization [employer] Address 75 [facility] 7t [place] [address] Care Team Providers Care Wax Pattern Coater Name Role Phone Jose Perry MD Primary Care Provider +1 [phone] Reason for Referral * Consultation (Routine) - Authorized Specialty Diagnoses / Procedures Referred By Antwan quinteros Referred To Contact Podiatry Diagnoses Cerebral palsy with spastic diplegia (CMS/HCC) Nail problem Jose Perry MD [address] [place] [address] Phone: tel: fax: Ziyad Estrada DPM [address] [place] [address] Phone: tel: fax: Referral ID Status Reason Start Date Expiration Date Visits Requested Visits Authorized [id number] Authorized Specialty Services Required 06/14/2025 1 1 Encounter Details Date Type Department Care Team (Late st Contact Info) Description 06/14/2024 Orders Only [facility] CHC MED & PEDS [address] [place] [address] Jose Perry MD [address] [place], [place] [phone] Cerebral palsy with spastic diplegia (CMS/HCC) (Primary Dx); Nail problem Social History Tobacco Use Types Packs/Day Years Used Date Smoking Tobacco: Never Smokeless Tobacco: Never Housing Stability Answer Date Recorded What is your housing situation today? I have ivettepapa giles 09/10/[address] you [...] Support [facility] DIABETES/NTRN [address] [place] [address] Clau Saunders, RD [address] [place] [address] 11/16/2024 2:00 PM EDT Office Visit [facility] MED & PEDS [address] [place] [address] Jose Perry MD [address] [place] [address] Scheduled Referrals Name Type Priority Associated Diagnoses Orde r Schedule Referral to Podiatry Outpatient Referral Routine Cerebral palsy with spastic diplegia (CMS/HCC) Nail problem Expected: 06/14/2024 (Approximate), Expires: 06/14/2025 documented as of this encounter Visit Diagnoses Diagnosis Cerebral palsy with spastic diplegia (CMS/HCC)- Primary Nail problem Other specified disease of nail documented in this encounter Care Teams Wax Pattern Coater Relationship Specialty Start Date End Date Jose Perry MD [address] [place] [address] PCP - General Internal Medicine 05/22/17 documented as of this encounter
--- OUTSIDE RECORDS SUMMARY | 2024-09-16 13:04 | XMS_ITS | Encounter Summary ---
Author Organization [employer] Address 75 [facility] 7t [place] [address] Care Team Providers Care Boxcar Weigher Name Role Phone Jose Perry MD Primary Care Provider +1- [phone] Reason for Visit * Reason Onset Date Comments Med Refill 04/05/2024 Encounter Details Date Type Department Care Team ([facility] st Contact Info) Description 04/05/2024 Telephone [facility] MEDICINE [address] [place] [address] Jose Perry MD [address] [place] [address] Med Refill Social History Tobacco Use Types [...] encounter Miscellaneous Notes * Telephone Encounter - Casey Cayetano - 04/05/2024 12:26 PM EDT TC from pt requesting medication refill. Medications needing refill : Starch-Maltodextrin (Thick-It) powder To be sent to: [facility] [address] [place] [address] [employer] [facility] documented in this encounter Plan of Treatment Upcoming Encounters Date Type Department Care Team (Late st Contact Info) Description 11/04/2024 10:00 AM EDT Clinical Support [facility] DIABETES/NTRN [address] [place] [address] Clau Saunders, RD [address] [place] [address] 11/16/2024 2:00 PM EDT Office Visit [facility] MED & PEDS [address] [place] [address] Jose Perry MD [address] [place] [address] documented as of this encounter Visit Diagnoses Not on filedocumented in this encounter Care Teams Boxcar Weigher Relationship Specialty Start Date End Date Jose Perry MD [address] [place] [address] PCP - General Internal Medicine 05/22/17 documented as of this encounter
--- OUTSIDE RECORDS SUMMARY | 2024-09-16 13:04 | XMS_ITS | Encounter Summary ---
Author Organization [employer] Address 75 [facility] 7t [place] [address] Care Team Providers Care Retail Pharmacy Manager Name Role Phone Jose Peryr MD Primary Care Provider +1- [phone] Reason for Visit * Reason Onset Date Comments Med Refill 02/04/2023 Encounter Details Date Type Department Care Team ([facility] st Contact Info) Description 02/04/2023 Telephone [facility] CHC MED & PEDS [address] [place], [place] [phone] Jose Perry MD [address] [place] [address] Med Refill Social History Tobacco Use Types [...] suspected to have Coronavirus/COVID-19? No / Unsure 01/16/2023 2:49 PM EDT documented as of this encounter Miscellaneous Notes * Telephone Encounter - Rosaline Christensen LPN - 02/04/2023 2:19 PM EDT Med not pended please review request * Telephone Encounter - Alejandra Duke - 02/04/2023 2:17 PM EDT Tc from pt requesting med refill for medication sodium phosphate (Fleets) 7-19 GM/118ML enema enema. documented in this encounter Plan of Treatment Upcoming Encounters Date Type Department Care Team (Late st Contact Info) Description 11/04/2024 10:00 AM EDT Clinical Support [facility] DIABETES/NTRN [address] [place], [place] [phone] Clau Saunders, RD [address] [place], [place] [phone] 11/16/2024 2:00 PM EDT Office Visit [facility] MED & PEDS [address] [place], [place] [phone] Jose Perry MD [address] [place] [address] documented as of this encounter Visit Diagnoses Not on filedocumented in this encounter Care Teams Retail Pharmacy Manager Relationship Specialty Start Date End Date Jose Perry MD [address] [place] [address] PCP - General Internal Medicine 05/22/17 documented as of this encounter
--- OUTSIDE RECORDS SUMMARY | 2024-09-16 13:04 | XMS_ITS | Encounter Summary ---
Author Organization [employer] Address [address] [facility] [address] 7t [place] [address] Care Team Providers Care Delivery Agent Name Role Phone Jose Perry MD Primary Care Provider +1- [phone] Encounter Details Date Type Department Care Team ([facility] st Contact Info) Description 07/07/2023 Orders Only [facility] CHC MED & PEDS [address] [place], [place] [phone] Jose Perry MD [address] [place] [address] Social History Tobacco Use Types Packs/Day Years [...] 10:00 AM EDT Clinical Support [facility] DIABETES/NTRN [address] [place] [address] Clau Saunders, RD 230 [place] [address] 11/16/2024 2:00 PM EDT Office Visit [facility] MED & PEDS [address] [place] [address] Jose Perry MD [address] [place] [address] documented as of this encounter Visit Diagnoses Not on filedocumented in this encounter Care Teams Delivery Agent Relationship Specialty Start Date End Date Jose Perry MD [address] [place] [address] PCP - General Internal Medicine 05/22/17 documented as of this encounter
--- OUTSIDE RECORDS SUMMARY | 2024-09-16 13:04 | XMS_ITS | Encounter Summary ---
Author Organization [employer] Address [address] [place] [address] 7t [place] [address] Care Team Providers Care Manager Of Hospital Name Role Phone Jose Perry MD Primary Care Provider +1- [phone] Reason for Referral * Consultation (Routine) - Closed Specialty Diagnoses / Procedures Referred By Antwan t Referred To Contact Nutrition Diagnoses Chronic idiopathic constipation Hypoproteinemia (CMS/HCC) Jose Perry MD [address] [place] [address] Phone: tel: fax: Referral ID Status Reason Start Date Expiration Date V isits Requested Visits Authorized [id number] Closed Consult and Treat 07/30/2024 07/30/2025 1 1 Encounter Details Date Type Department Care Team ([facility] Contact Info) Description 07/30/2024 Orders Only [facility] CHC MED & PEDS [address] [place] [address] Jose Perry MD [address] [place] [address] Chronic idiopathic constipation (Primary Dx); Hypoproteinemia (CMS/HCC); Wound of sacral region, initial encounter; Other urinary incontinence; Allergy to honey bee venom Social History Tobacco Use Types Packs/Day Years Used Date Smoking Tobacco: Never Smokeless Tobacco: Never Housing Stability Answer Date Recorded What is your housing situation today? I have ivette tisha 09/10/[address] you li [...] t he electric, gas, oil or water [employer] threatened to shut off services in your [...] Support [facility] DIABETES/NTRN [address] [place] [address] [place] [address] 11/16/2024 2:00 PM EDT Office Visit [facility] MED & PEDS [address] [place] [address] Jose Perry MD [address] [place] [address] Scheduled Referrals Name Type Priority Associated Diagnoses Orde r Schedule Referral to Nutrition Therapy Outpatient Referral Routine Chronic idiopathic constipation Hypoproteinemia (CMS/HCC) Expected: 07/30/2024 (Approximate), Expires: 07/30/2025 documented as of this encounter Visit Diagnoses Diagnosis Chronic idiopathic constipation- Primary Unspecified constipation 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
--- OUTSIDE RECORDS SUMMARY | 2024-09-16 13:04 | XMS_ITS | Encounter Summary ---
Author Organization [employer] Address [address] [facility] [address] [place] [address] Care Team Providers Care Sandwich Artist Name Role Phone Jose Perry MD Primary Care Provider +1 [phone] Encounter Details Date Type Department Care Team ([facility] Contact Info) Description 05/06/2024 Orders Only [facility] CHC MED & PEDS [address] [place], [place] [phone] Jose Perry MD [address] [place] [address] Social History Tobacco Use Types Packs/Day Years [...] Description 11/04/2024 10:00 AM EDT Clinical Support [facility] DIABETES/NTRN [address] [place] [address] Clau Saunders, RD 230 [place] [address] 11/16/2024 2:00 PM EDT Office Visit [facility] MED & PEDS [address] [place] [address] Jose Perry MD [address] [place] [address] documented as of this encounter Visit Diagnoses Not on filedocumented in this encounter Care Teams Sandwich Artist Relationship Specialty Start Date End Date Jose Perry MD [address] [place] [address] PCP - General Internal Medicine 05/22/17 documented as of this encounter
--- OUTSIDE RECORDS SUMMARY | 2024-09-16 13:04 | XMS_ITS | Encounter Summary ---
Author Organization [employer] Address 75 [facility] 7t [place] [address] Care Team Providers Care Fire Fighter [employer] Name Role Phone Jose Perry MD Primary Care Provider +1- [phone] Reason for Visit * Reason Onset Date Comments Medication Question 04/17/2023 Encounter Details Date Type Department Care Team ([facility] st Contact Info) Description 04/17/2023 Telephone [facility] CHC MED & PEDS [address] [place], [place] [phone] Jose Perry MD [address] [place] [address] Medication Question Social History Tobacco Use Types [...] encounter Miscellaneous Notes * Telephone Encounter - Julianne Love RN - 04/18/2023 2:06 PM EDT Please review message below and advise. Thank you. * Telephone Encounter - Alejandra Duke - 04/17/2023 9:27 AM EDT Tc from [facility] calling to inform they do not have medication Dimethicone-ZincOxide 5-5 % cream. States they only have the Dimethicone-Zinc Oxide 1-10% cream. Please call pharmacy to clarify . documented in this encounter Plan of Treatment Upcoming Encounters Date Type Department Care Team (Late st Contact Info) Description 11/04/2024 10:00 AM EDT Clinical Support [facility] DIABETES/NTRN [address] [place], [place] [phone] Clau Saunders, RD [address] [place], [place] [phone] 11/16/2024 2:00 PM EDT Office Visit [facility] MED & PEDS [address] [place], [place] [phone] Jose Perry MD [address] [place] [address] documented as of this encounter Visit Diagnoses Not on filedocumented in this encounter Care Teams Fire Fighter [employer] Relationship Specialty Start Date End Date Jose Perry MD [address] [place] [address] PCP - General Internal Medicine 05/22/17 documented as of this encounter
--- OUTSIDE RECORDS SUMMARY | 2024-09-16 13:04 | XMS_ITS | Encounter Summary ---
Author Organization [employer] Address 75 [facility] 7t [place] [address] Care Team Providers Care Labor Service Representative Name Role Phone Jose Perry MD Primary Care Provider +1- [phone] Reason for Visit * Reason Onset Date Comments Appointment Request 01/06/2024 Encounter Details Date Type Department Care Team ([facility] Contact Info) Description 01/06/2024 Telephone [facility] MEDICINE [address] [place] [address] Jose Perry MD [address] [place] [address] Appointment Request Social History Tobacco Use Types Packs/Day Years [...] encounter Miscellaneous Notes * Telephone Encounter - Wing Clayton RN - 01/09/2024 10:52 AM EDT Tc to pt to inquire about appt request for cellulitis at [phone]. Reached voice mail of Jose Enriquez at [facility] left message for him to call back regarding pt. * Telephone Encounter - Casey Monteiro - 01/06/2024 3:32 PM EDT Tc from patient calling to request a appt states had cellulites on the elbow before and did not receive any medication documented in this encounter Plan of Treatment Upcoming Encounters Date Type Department Care Team (Late st Contact Info) Description 11/04/2024 10:00 AM EDT Clinical Support [facility] DIABETES/NTRN [address] [place] [address] Clau Saunders, RD [address] [place] [address] 11/16/2024 2:00 PM EDT Office Visit [facility] MED & PEDS [address] [place] [address] Jose Perry MD [address] [place] [address] documented as of this encounter Visit Diagnoses Not on filedocumented in this encounter Care Teams Labor Service Representative Relationship Specialty Start Date End Date Jose Perry MD [address] [place] [address] PCP - General Internal Medicine 05/22/17 documented as of this encounter
--- OUTSIDE RECORDS SUMMARY | 2024-09-16 13:04 | XMS_ITS | Encounter Summary ---
Author Organization [employer] Address [address] [facility] [address] [place] [address] Care Team Providers Care Market Risk Specialist Name Role Phone Jose Perry MD Primary Care Provider [phone]- [phone] Encounter Details Date Type Department Care Team ([facility] st Contact Info) Description 05/28/2023 Orders Only [facility] CHC MED & PEDS [address] [place], [place] [phone] Jose Perry MD [address] [place] [address] Social History Tobacco Use Types Packs/Day Years [...] 11/04/2024 10:00 AM EDT Clinical Support [facility] DIABETES/NTRN [address] [place] [address] Clau Saunders, RD [address] [place] [address] 11/16/2024 2:00 PM EDT Office Visit [facility] MED & PEDS [address] [place] [address] Jose Perry MD [address] [place] [address] documented as of this encounter Visit Diagnoses Not on filedocumented in this encounter Care Teams Market Risk Specialist Relationship Specialty Start Date End Date Jose Perry MD [address] [place] [address] PCP - General Internal Medicine 05/22/17 documented as of this encounter
--- OUTSIDE RECORDS SUMMARY | 2024-09-16 13:04 | XMS_ITS | Encounter Summary ---
Author Organization [employer] Address 75 [facility] 7t [place] [address] Care Team Providers Care Grounds And Nursery Specialist Name Role Phone Jose Perry MD Primary Care Provider +1- [phone] Reason for Visit * Reason Onset Date Comments Nurse Triage 09/15/2024 Encounter Details Date Type Department Care Team ([facility] st Contact Info) Description 09/15/2024 Telephone [facility] [address] [place], [place] [phone] Jose Perry MD [address] [place] [address] Nurse Triage Social History Tobacco Use Types Packs/Day Years [...] encounter Miscellaneous Notes * Telephone Encounter - Lisha Crook RN - 09/15/2024 2:48 PM EST Call to [phone], Activities Aide of Residential home answered call. Advised that Pt PCP has writtenlab order for Pt for urinalysis and reflex culture to be done. Staff will come to [facility] lab to obtaina sterile cup for urine to be obtained prior to coming to apt 09/16/24 @ 1000am. * Telephone Encounter - Jose Perry MD - 09/15/2024 2:04 PM EST FYI. The order was placed in the chart * Telephone Encounter - Lisha Crook RN - 09/15/2024 11:20 AM EST Triage call to Pt , Pt didn't answer. Call to [phone], residential home where Pt resides. Jonh answered phone and is staff there. Jonh had called due to notification that Pt was urinating frequently and is asked to follow up to rule out UTI. Pt urinates frequently on a regular basis per Jonh. Pt drinks adequate fluids, no pain with urination or flank/low back pain. Pt will be coming to apt in [facility] 09/16/24 for follow up and Jonh is requesting a lab be done to rule out UTI. Jonh is advised will forward this to [facility] nursing team for follow up prn. Jonh is asking to obtain a urine cup tobring to apt tomorrow for lab. Jonh agrees with this plan . Protocol Used: Urinary Symptoms (Adult) Protocol-Based Disposition: See in Office or Video Visit within 2 Weeks Positive Triage Question: * All other urine symptoms * All higher-acuity triage questions were negative Care Advice Discussed: * Reasons To Call Back - Fever occurs - Pain or burning with urination - You become worse * Telephone Encounter - Alejandra Leilani - 09/15/2024 10:59 AM EST Symptom: Urine Symptoms Outcome: Schedule a same-day appointment or talk to a nurse or provider today Reason: Caller denied all higher acuity questions The caller accepted this outcome. Would like a referral to a urology. May request to speak with jonh or NICKY supervise documented in this encounter Plan of Treatment Upcoming Encounters Date Type Department Care Team (Late st Contact Info) Description 11/04/2024 10:00 AM EDT Clinical Support [facility] DIABETES/NTRN [address] [place] [address] Clau Saunders, RD [address] [place] [address] 11/16/2024 2:00 PM EDT Office Visit [facility] MED & PEDS [address] [place] [address] Jose Perry MD [address] [place] [address] Scheduled Orders Name Type Priority Associated Diagnoses Orde r Schedule Urinalysis, Complete, with Reflex to Culture Lab Routine Urinary incontinence, unspecified type Expected: 09/15/2024 (Approximate), Expires: 09/15/2025 documented as of this encounter Visit Diagnoses Diagnosis Urinary incontinence, unspecified type- Primary documented in this encounter Care Teams Grounds And Nursery Specialist Relationship Specialty Start Date End Date Jose Perry MD [address] [place] [address] PCP - General Internal Medicine 05/22/17 documented as of this encounter
--- OUTSIDE RECORDS SUMMARY | 2024-09-16 13:04 | XMS_ITS | Encounter Summary ---
Author Organization [employer] Address 75 [facility] 7t [place] [address] Care Team Providers Care Agitator Operator Name Role Phone Jose Perry MD Primary Care Provider [phone]- [phone] Reason for Visit * Reason Onset Date Comments Referral 07/01/2023 Encounter Details Date Type Department Care Team ([facility] Contact Info) Description 07/01/2023 Telephone [facility] MEDICINE [address] [place] [address] Jose Perry MD [address] [place] [address] Referral Social History Tobacco Use Types Packs/Day Years [...] encounter Miscellaneous Notes * Telephone Encounter - Rose Marie Ordoñez RN - 07/02/2023 3:32 PM EST Placed call to Rony at [facility] regarding message below. Rony states reason for referral request was because when pt gets up in the morning pt tends to spasm and twitch and afterwards looks tired. This occurs every morning and the duration is about 10-20 seconds. Rony informed that pt is scheduled for a visit with PCP tomorrow and can discuss need with doctor. Rony agrees with plan. * Telephone Encounter - Casey Monteiro - 07/01/2023 1:45 PM EST Tc from [facility] requesting a referral for a Neurologists no other information provided documented in this encounter Plan of Treatment Upcoming Encounters Date Type Department Care Team (Late st Contact Info) Description 11/04/2024 10:00 AM EDT Clinical Support [facility] DIABETES/NTRN [address] [place] [address] Clau Saunders, RD [address] [place] [address] 11/16/2024 2:00 PM EDT Office Visit [facility] MED & PEDS [address] [place] [address] Jose Perry MD [address] [place] [address] documented as of this encounter Visit Diagnoses Not on filedocumented in this encounter Care Teams Agitator Operator Relationship Specialty Start Date End Date Jose Perry MD [address] [place] [address] PCP - General Internal Medicine 05/22/17 documented as of this encounter
--- OUTSIDE RECORDS SUMMARY | 2024-09-16 13:04 | XMS_ITS | Encounter Summary ---
Author Organization [employer] Address [address] [facility] [address] 7t [place] [address] Care Team Providers Care Rapid Transit Operator Name Role Phone Jose Perry MD Primary Care Provider [phone] Encounter Details Date Type Department Care Team (Latest Contact Info) Description 08/19/2024 Travel Social History Tobacco Use Types Packs/Day Years [...] Description 11/04/2024 10:00 AM EDT Clinical Support [facility] DIABETES/NTRN [address] [place], [place] [phone] Clau Saunders, RD [address] [place], [place] [phone] 11/16/2024 2:00 PM EDT Office Visit [facility] MED & PEDS [address] [place], [place] [phone] Jose Perry MD [address] [place] [address] documented as of this encounter Visit Diagnoses Not on filedocumented in this encounter Care Teams Rapid Transit Operator Relationship Specialty Start Date End Date Jose Perry MD [address] [place] [address] PCP - General Internal Medicine 05/22/17 documented as of this encounter
--- OUTSIDE RECORDS SUMMARY | 2024-09-16 13:04 | XMS_ITS | Encounter Summary ---
Author Organization [employer] Address [address] [facility] 7t [place] [address] Care Team Providers Care Production Line Assembler Name Role Phone Jose Perry MD Primary Care Provider [phone]- [phone] Reason for Visit * Reason Onset Date Comments Med Refill 03/20/2023 Encounter Details Date Type Department Care Team (Late Contact Info) Description 03/20/2023 Telephone [facility] MED & PEDS [address] [place] [address] Jose Perry MD [address] [place] [address] Med Refill Social History Tobacco Use Types [...] encounter Miscellaneous Notes * Telephone Encounter - Destinee Love - 03/20/2023 10:35 AM EDT Tc from [facility] requesting medication refill on bacitracin 500 unit/gram topical ointment and acetaminophen (Tylenol 8 Hour) 650 MG ER tablet documented in this encounter Plan of Treatment Upcoming Encounters Date Type Department Care Team (Late Contact Info) Description 11/04/2024 10:00 AM EDT Clinical Support [facility] DIABETES/NTRN [address] [place] [address] Clau Saunders, RD [address] [place], [place] [phone] 11/16/2024 2:00 PM EDT Office Visit [facility] MED & PEDS [address] [place] [address] Jose Perry MD [address] [place] [address] documented as of this encounter Visit Diagnoses Not on filedocumented in this encounter Care Teams Production Line Assembler Relationship Specialty Start Date End Date Jose Perry MD [address] [place] [address] PCP - General Internal Medicine 05/22/17 documented as of this encounter
--- OUTSIDE RECORDS SUMMARY | 2024-09-16 13:04 | XMS_ITS | Encounter Summary ---
Author Organization [employer] Address [address] [facility] [address] 7[address] [place] [address] Care Team Providers Care Bull Gang Worker Name Role Phone Jose Perry MD Primary Care Provider [phone]- [phone] Encounter Details Date Type Department Care Team (Latest Contact Info) Description 08/19/2024 3:00 PM EST Clinical Support [facility] DIABETES/NTRN [address] [place] [address] Clau Saunders, RD [address] [place] [address] Weight loss (Primary Dx) Social History Tobacco Use Types Packs/Day Years [...] AM EDT documented as of this encounter Last Filed Vital Signs Vital Sign Reading Time Taken Comments Blood Pressure - - Pulse - - Temperature - - Respiratory Rate - - Oxygen Saturation - - Inhaled Oxygen Concentration - - Weight 88.5 kg (195 lb) 08/23/2024 11:49 AM EST Height 172.7 cm (5' 8 ) 08/23/2024 11:49 AM EST Body Mass Index 29.65 08/23/2024 11:49 AM EST documented in this encounter Progress Notes * Clau Saunders RD - 08/19/2024 3:00 PM EST In Person Visit Medical Diagnosis: R63.4 Weight loss Anthropometrics: Ht:5' 8 (1.727 m), Wt:195 lb (88.5 kg), BMI: Body mass index is 29.65 kg/m??. Assessment: Patient (Pt) accepted nutrition education assessment appointment with RD. RD took Pt's weight. Weight revealed to be at a good weight for Pt's height to weight ratio. RD subtracted the weight of Pt's wheelchair which was given by Pt's staff from where he lives. Chair weight reported to RD was: 47.8 lbs.. Weight of Pt's leg brace, shoes, and clothes were given: 4 (four) pounds. Thus, Total weight of Pt, wheelchair, along with Pt's clothes, brace and shoes: 246.8 lbs. minus Chair weight: 47.8 lbs. Pt's leg brace, shoes, and cloths: 4.0 Total weight of Pt: 246.8 - 47.8 - -4.0 = 195.0 lbs. (The actual weight of Pt today.) RD took 24 hour recall/ typical daily intake from Pt. Intake revealed Pt is being fed puree foods/ meals. The in-depth of these meals were given to RD katarzyna generalized manor. Staff that came in with Pt attestified that Pt is given meals as suggested by RD in Pt's Tailored made meal plan. Pt, according to staff members today, Pt is eating well. Pt continues to be active when he is up and not sleepy. All in all, RD is happy to see that Pt's weight is in a good weight for his height. A follow up appointment is scheduled in the last week of August 2024. Food Allergies: NKFA Exercise: Pt is unable to walk and coordinate arms as well. Food Intolerance: None mentioned Food Preferences: Like most foods; none was mentioned Food Dislikes: None was mentioned Frequency of Eating Out/ Restaurant: Not a norm; eats meals and snacks per pair by [facility] staff Who Cooks?: senior living staff How much caffeine?: none How much sugary beverages?: None mentioned; Crystal Light and water are the beverages of choice Diet History: Breakfast: Staff reports all foods are pureed. Eg+ Sausage: 2 Bread: 2 Beverages: 2+ cups Snack: Granola bar: one Sugar free beverage: 1+ cup Lunch: Meat: 5 oz. Mashed potatoes: 1 cup Ve cup S.F Beverage: 1+ cups Snack: Puddin/2 cup S.F. Beverage: 1+ cup Dinner: Protein: 5+ oz. Noodle: 1+ cups Ve+ cups S.F. beverage: 1+ cups Snack: Apple pie: 1/2 cup S.F. beverage: 1+ cups Nutrition Diagnosis: NC- 3.2 Unintentional weight loss related to decrease ability to consume sufficient energy/ protein: Cerebral palsy with spastic diplegia, dysphagia, ataxic cerebral palsy, macular degeneration, cognitive decline, Martinez's esophagus, honey thick consistency food texture as evidence by decrease in w eight noted by PCP and history of on and off having sacral wound. Today, 08/19/2024, staff has reported to RD that Pt's sacral wound is healed. Nutrition Intervention: RD suggested for staff to help Pt meet his Tailored made meal plan. Pt's nail look brittle and one recently chipped today while skin looks moist. RD suggested to put lotion on Pt's hands. Staff said they will work on this. Monitoring and Evaluation: Indicator Criteria Adherence frequency of eating, portion controls, carbohydrate exchanges, protein intake Weight Loss BMI, exercise routine and frequency Glucose control A1C, blood sugars Lipid control Lipid panel Provider: Clau Saunders RD, LDN documented in this encounter Plan of Treatment Upcoming Encounters Date Type Department Care Team (Late st Contact Info) Description 11/04/2024 10:00 AM EDT Clinical Support [facility] DIABETES/NTRN [address] [place] [address] [place], [place] [phone] 11/16/2024 2:00 PM EDT Office Visit [facility] MED & PEDS [address] [place] [address] Jose Perry MD [address] [place] [address] documented as of this encounter Visit Diagnoses Diagnosis Weight loss- Primary Loss of weight documented in this encounter Care Teams Bull Gang Worker Relationship Specialty Start Date End Date Jose Perry MD [address] [place] [address] PCP - General Internal Medicine 05/22/17 documented as of this encounter
--- OUTSIDE RECORDS SUMMARY | 2024-09-16 13:04 | XMS_ITS | Encounter Summary ---
Author Organization [employer] Address [address] [facility] [address] 7t [place] [address] Care Team Providers Care Rehab Aid Name Role Phone Jose Perry MD Primary Care Provider [phone] Encounter Details Date Type Department Care Team (Latest Contact Info) Description 09/16/2024 Travel Social History Tobacco Use Types Packs/Day [...] Description 11/04/2024 10:00 AM EDT Clinical Support [facility] DIABETES/NTRN [address] [place], [place] [phone] Clau Saunders, RD [address] [place], [place] [phone] 11/16/2024 2:00 PM EDT Office Visit [facility] MED & PEDS [address] [place], [place] [phone] Jose Perry MD [address] [place] [address] documented as of this encounter Visit Diagnoses Not on filedocumented in this encounter Care Teams Rehab Aid Relationship Specialty Start Date End Date Jose Perry MD [address] [place] [address] PCP - General Internal Medicine 05/22/17 documented as of this encounter
[2024-09-16 14:37] LABS: Appearance Urine Clear; Color Urine Yellow; Glucose Urine UA Negative (Negative); Leukocyte Esterase Urine Negative (Negative); Nitrite Urine Negative (Negative); Urine Blood Negative (Negative); Urine Ketones Negative (Negative); Urine Protein Negative (Neg-Trace)
[2024-09-16 14:44] LABS: Bacteria Urine None Seen (None Seen); Hyaline Casts Urine 0-2 /LPF (0-2); RBC Urine 0-2 /HPF (0-2); Squamous Epithelial Cell Urine 0-2 /HPF (0-2); WBC Urine 0-5 /HPF (0-5)
== END 2024-09-16 10:58 | disposition home or self-care (01) ==
LOC: HO.CHCLNP 10:57
PROVIDERS: Visit Provider Internal Medicine
DX: R32 Unspecified urinary incontinence (principal)
CPT/HCPCS: 81001

== ENCOUNTER 2024-11-17 11:34 | Outpatient (REF) | payer MEDICARE, SELFPAY ==
--- OUTSIDE RECORDS SUMMARY | 2024-11-17 13:12 | XMS_ITS | Encounter Summary ---
Author Organization [employer] Address 75 [facility] 7t [place] [address] Care Team Providers Care Phlebotomy Director Name Role Phone Jose Perry MD Primary Care Provider [phone]- [phone] Reason for Visit * Reason Onset Date Comments ER Follow-up 10/14/2023 Encounter Details Date Type Department Care Team ([facility] Contact Info) Description 10/14/2023 Telephone [facility] MEDICINE [address] [place] [address] Jose Perry MD [address] [place] [address] ER Follow-up Social History Tobacco Use Types [...] ED visit on : Date: 10/12 Hospital: [facility] Seen for: Rash Patient advised will forward to team nurse for follow up documented in this encounter Plan of Treatment Not on file documented as of this encounter Visit Diagnoses Not on filedocumented in this encounter Care Teams Phlebotomy Director Relationship Specialty Start Date End Date Jose Perry MD [address] [place] [address] PCP - General Internal Medicine 05/22/17 documented as of this encounter
--- OUTSIDE RECORDS SUMMARY | 2024-11-17 13:12 | XMS_ITS | Encounter Summary ---
Author Organization [employer] Address [address] [place] [address] Care Team Providers Care Bevel Mill Operator Name Role Phone Jose Perry MD Primary Care Provider [phone]- [phone] Encounter Details Date Type Department Care Team ([facility] st Contact Info) Description 05/02/[address] 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
--- OUTSIDE RECORDS SUMMARY | 2024-11-17 13:12 | XMS_ITS | Encounter Summary ---
Author Organization [employer] Address 75 [facility] 7t [place] [address] Care Team Providers Care Tool Shaper Setup Operator Name Role Phone Jose Perry MD Primary Care Provider [phone]- [phone] Reason for Referral * Consultation (Routine) - Closed Specialty Diagnoses / Procedures Referred By Antwan t Referred To Contact Podiatry Diagnoses Cerebral palsy with spastic diplegia (CMS/HCC) Nail problem Jose Perry MD [address] [place] [address] Phone: tel: fax: Ziyad Estrada DPM [address] [address] Phone: tel: fax: Referral ID Status Reason Start Date Expiration Date V isits Requested Visits Authorized [id number] Closed Specialty Services Required 06/14/2024 06/14/2025 1 1 Encounter Details Date Type Department Care Team (Late st Contact Info) Description 06/14/2024 Orders Only [facility] CHC MED & PEDS [address] [place] [address] Jose Perry MD [address] [place], [place] [phone] Cerebral palsy with spastic diplegia (CMS/HCC) (Primary [...] as of this encounter Plan of Treatment Scheduled Referrals Name Type Priority Associated Diagnoses Orde r Schedule Referral to Podiatry Outpatient Referral Routine Cerebral palsy with spastic diplegia (CMS/HCC) Nail problem Expected: 06/14/2024 (Approximate), Expires: 06/14/2025 documented as of this encounter Visit Diagnoses Diagnosis Cerebral palsy with spastic diplegia (CMS/HCC)- Primary Nail problem Other specified disease of nail documented in this encounter Care Teams Tool Shaper Setup Operator Relationship Specialty Start Date End Date Jose Perry MD [address] [place] [address] PCP - General Internal Medicine 05/22/17 documented as of this encounter
--- OUTSIDE RECORDS SUMMARY | 2024-11-17 13:12 | XMS_ITS | Encounter Summary ---
Author Organization [employer] Address 75 [facility] 7t [place] [address] Care Team Providers Care Factory Expert Name Role Phone Jose Perry MD Primary Care Provider +1- [phone] Reason for Visit * Reason Onset Date Comments ER Follow-up 02/18/2023 Encounter Details Date Type Department Care Team ([facility] st Contact Info) Description 02/18/2023 Telephone [facility] CHC MED & PEDS [address] [place], [place] [phone] Jose Perry MD [address] [place] [address] ER Follow-up Social History Tobacco Use Types [...] - 02/20/2023 9:48 AM EDT T/C to [phone] for below message, Brandt states pt. Had fall and had Ed [facility] [place] [facility]. Pt. Is doing good right now. Pt. Schedule for Ed follow up on . Advised to bring nearest Ed in case of any new or worsening symptoms. SANTI malloy is in pt.'s chart. * Telephone Encounter - Destinee Love - 02/18/2023 2:09 PM EDT Tc from [place] with [facility] mental health calling to report a ED visit. Pt was seen at [facility] on 02/15/23 for a fall. Please contact brandt at [phone] documented in this encounter Plan of Treatment Not on file documented as of this encounter Visit Diagnoses Not on filedocumented in this encounter Care Teams Factory Expert Relationship Specialty Start Date End Date Jose Perry MD [address] [place] [address] PCP - General Internal Medicine 05/22/17 documented as of this encounter
--- OUTSIDE RECORDS SUMMARY | 2024-11-17 13:12 | XMS_ITS | Encounter Summary ---
Author Organization [employer] Address [address] [facility] [address] 7t [place] [address] Care Team Providers Care Checker Cashier Name Role Phone Jose Perry MD Primary Care Provider +1- [phone] Encounter Details Date Type Department Care Team ([facility] st Contact Info) Description 05/28/2023 Orders Only [facility] CHC MED & PEDS [address] [place], [place] [phone] Jose Perry MD [address] [place] [address] Social History Tobacco Use Types Packs/Day Years [...] on filedocumented in this encounter Care Teams Checker Cashier Relationship Specialty Start Date End Date Jose Perry MD [address] [place] [address] PCP - General Internal Medicine 05/22/17 documented as of this encounter
--- OUTSIDE RECORDS SUMMARY | 2024-11-17 13:12 | XMS_ITS | Encounter Summary ---
Author Organization [employer] Address 75 [facility] 7t [place] [address] Care Team Providers Care 911 Telecommunicator Name Role Phone Jose Perry MD Primary Care Provider +[phone]- [phone] Reason for Visit * Reason Onset Date Comments Referral 07/01/2023 Encounter Details Date Type Department Care Team ([facility] Contact Info) Description 07/01/2023 Telephone [facility] MEDICINE [address] [place] [address] Jose Perry MD [address] [place] [address] Referral Social History Tobacco Use Types Packs/Day [...] PM EST Placed call to Rony at [facility] regarding message below. Rony states reason [...] on filedocumented in this encounter Care Teams 911 Telecommunicator Relationship Specialty Start Date End Date Jose Perry MD [address] [place] [address] PCP - General Internal Medicine 05/22/17 documented as of this encounter
--- OUTSIDE RECORDS SUMMARY | 2024-11-17 13:12 | XMS_ITS | Encounter Summary ---
Author Organization [employer] Address [address] [facility] [address] 7[address] [place] [address] Care Team Providers Care Cottage Supervisor Name Role Phone Jose Perry MD Primary Care Provider +[phone] Encounter Details Date Type Department Care Team ([facility] Contact Info) Description 05/06/2024 Orders Only [facility] CHC MED & PEDS [address] [place], [place] [phone] Jose Perry MD [address] [place] [address] Social History Tobacco Use Types Packs/Day Years [...] on filedocumented in this encounter Care Teams Cottage Supervisor Relationship Specialty Start Date End Date Jose Perry MD [address] [place] [address] PCP - General Internal Medicine 05/22/17 documented as of this encounter
--- OUTSIDE RECORDS SUMMARY | 2024-11-17 13:12 | XMS_ITS | Encounter Summary ---
Author Organization [employer] Address [address] [facility] 7t [place] [address] Care Team Providers Care Sand Filler Name Role Phone Jose Perry MD Primary Care Provider [phone]- [phone] Reason for Visit * Reason Onset Date Comments Appointment Request 01/06/2024 Encounter Details Date Type Department Care Team ([facility] Contact Info) Description 01/06/2024 Telephone [facility] MEDICINE [address] [place] [address] Jose Perry MD [address] [place] [address] Appointment Request Social History Tobacco Use Types [...] inquire about appt request for cellulitis at [phone]. Reached voice mail of Jose Enriquez at [facility] left message for him to call [...] on filedocumented in this encounter Care Teams Sand Filler Relationship Specialty Start Date End Date Jose Perry MD [address] [place] [address] PCP - General Internal Medicine 05/22/17 documented as of this encounter
--- OUTSIDE RECORDS SUMMARY | 2024-11-17 13:12 | XMS_ITS | Encounter Summary ---
Author Organization [employer] Address 75 [facility] 7t [place] [address] Care Team Providers Care Tube Maker Name Role Phone Jose Perry MD Primary Care Provider +1- [phone] Reason for Visit * Reason Onset Date Comments Medication Question 04/17/2023 Encounter Details Date Type Department Care Team ([facility] st Contact Info) Description 04/17/2023 Telephone [facility] CHC MED & PEDS [address] [place], [place] [phone] Jose Perry MD 505 [place] [address] Medication Question Social History Tobacco Use Types [...] - 04/17/2023 9:27 AM EDT Tc from [facility] calling to inform they do not have medication Dimethicone-ZincOxide 5-5 % cream. States they only have the Dimethicone-Zinc Oxide 1-10% cream. Please call pharmacy to clarify . documented in this encounter Plan of Treatment Not on file documented as of this encounter Visit Diagnoses Not on filedocumented in this encounter Care Teams Tube Maker Relationship Specialty Start Date End Date Jose Perry MD [address] [place] [address] PCP - General Internal Medicine 05/22/17 documented as of this encounter
--- OUTSIDE RECORDS SUMMARY | 2024-11-17 13:12 | XMS_ITS | Encounter Summary ---
Author Organization [employer] Address [address] [facility] [address] 7t [place] [address] Care Team Providers Care Coach Wirer Name Role Phone Jose Perry MD Primary Care Provider [phone] Encounter Details Date Type Department Care Team ([facility] st Contact Info) Description 09/18/2023 Orders Only [facility] CHC MED & PEDS 505 [place], [place] [phone] Jose Perry MD 505 [place] [address] Frequent urination (Primary Dx); Ataxic cerebral palsy [...] on file documented as of this encounter Procedures Procedure Name Priority Date/Time Associated Diagnosis Comments PSA, SCREEN Routine 09/23/2023 4:14 PM EST Frequent urination URINALYSIS, COMPLETE, WITH REFLEX TO CULTURE Routine 09/23/2023 9:50 AM EST Frequent urination documented in this encounter Results * PSA, Screen (09/23/2023 4:14 PM EST) PSA, Total 0.45 <0.05 - 4.0 ng/mL [facility] Comment:PSA methodology: Anjali Rizo i ChemiluminescentMicroparticle Immunoassay (CMIA) Blood Venous blood specimen / Unknown 09/23/2023 4:14 PM EST 09/23/2023 5:30 PM EST us Jose Perry MD LAB BLOOD ORDERABLES Final Result [facility] [address] [place] [phone] * Urinalysis, Complete, with Reflex to Culture (09/23/2023 9:50 AM EST) Color Urine Yellow [facility] Appearance Urine Clear [facility] PH 6.0 5.0 - 9.0 [facility] Glucose Urine UA Negative Negative mg/dL [facility] Urine Blood Negative Negative [facility] Specific [place] - Urine 1.010 1.005 - 1.025 [facility] Urine Protein Negative Neg-Trace mg/dL [facility] Urine Ketones Negative Negative mg/dL [facility] Nitrite Urine Negative Negative [facility] Leukocyte Esterase Urine Negative Negative [facility] RBC Urine 0-2 0 - 2 /HPF [facility] Urine WBC 0-5 0 - 5 /HPF [facility] Urine Squamous Epithelial Cell 0-2 0 - 2 /HPF [facility] Urine Bacteria None Seen None Seen [facility] Hyaline Casts, Urine 0-2 0 - 2 /LPF [facility] Urine 09/23/2023 9:50 AM EST 09/23/2023 2:14 PM EST Narrative [facility] - 09/23/2023 2:30 PM EST [id number], Clean Catch Jose ePrry MD LAB URINE ORDERABLES Final Result [facility] [address] [place] [phone] [phone] documented in this encounter Visit Diagnoses Diagnosis Frequent urination- Primary Urinary frequency 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
--- OUTSIDE RECORDS SUMMARY | 2024-11-17 13:12 | XMS_ITS | Encounter Summary ---
Author Organization [employer] Address 75 [facility] 7t [place] [address] Care Team Providers Care Wildland Fire Fighter Name Role Phone Jose Perry MD Primary Care Provider [phone]- [phone] Reason for Visit * Reason Onset Date Comments Medication Question 09/16/2023 Encounter Details Date Type Department Care Team ([facility] st Contact Info) Description 09/16/2023 Telephone [facility] MEDICINE [address] [place] [address] Jose Perry MD 505 [place] [address] Medication Question Social History Tobacco Use Types [...] urology, and from the supplements listed below: [place] Prostate and Super Beta Prostate. Rony states [...] would benefit from a supplement. Supplements are [place] prostate and super beta prostate. Please contact Rony at [phone]. * Telephone Encounter - Da Morataya - 09/16/2023 10:46 AM EST Assess his prostate to see if he would benefit from a supplement. Supplements are [place] prostate and super beta prostate. Please contact Rony at [phone]. documented in this encounter Plan of Treatment Not on file documented as of this encounter Visit Diagnoses Not on filedocumented in this encounter Care Teams Wildland Fire Fighter Relationship Specialty Start Date End Date Jose Perry MD [address] [place] [phone] PCP - General Internal Medicine 05/22/17 documented as of this encounter
--- OUTSIDE RECORDS SUMMARY | 2024-11-17 13:12 | XMS_ITS | Encounter Summary ---
Author Organization [employer] Address [address] [facility] [address] 7t [place] [address] Care Team Providers Care First Aid Director Name Role Phone Jose Perry MD Primary Care Provider [phone]- [phone] Encounter Details Date Type Department Care Team ([facility] st Contact Info) Description 10/05/2024 Orders Only [facility] MEDICINE [address] [place] [address] Jose Perry MD 505 [place] [address] Cognitive decline (Primary Dx); Mood disorder (CMS/HCC) Social History Tobacco Use Types Packs/Day [...] as of this encounter Visit Diagnoses Diagnosis Cognitive decline- Primary Mood disorder (CMS/HCC) Unspecified episodic mood disorder documented in this encounter Care Teams First Aid Director Relationship Specialty Start Date End Date Jose Perry MD [address] [place] [address] PCP - General Internal Medicine 05/22/17 documented as of this encounter
--- OUTSIDE RECORDS SUMMARY | 2024-11-17 13:12 | XMS_ITS | Encounter Summary ---
Author Organization [employer] Address 75 [facility] 7t [place] [address] Care Team Providers Care Activity Aid Name Role Phone Jose Perry MD Primary Care Provider [phone]- [phone] Reason for Visit * Reason Onset Date Comments Med Refill 02/04/2023 Encounter Details Date Type Department Care Team ([facility] st Contact Info) Description 02/04/2023 Telephone [facility] CHC MED & PEDS 505 [place], [place] [phone] Jose Perry MD 505 [place] [address] Med Refill Social History Tobacco Use Types [...] on filedocumented in this encounter Care Teams Activity Aid Relationship Specialty Start Date End Date Jose Perry MD [address] [place] [address] PCP - General Internal Medicine 05/22/17 documented as of this encounter
--- OUTSIDE RECORDS SUMMARY | 2024-11-17 13:12 | XMS_ITS | Encounter Summary ---
Author Organization [employer] Address 75 [facility] 7t [place] [address] Care Team Providers Care Splicing Supervisor Name Role Phone Jose Perry MD Primary Care Provider +1- [phone] Reason for Visit * Reason Onset Date Comments Medication Question 10/05/2024 Encounter Details Date Type Department Care Team ([facility] st Contact Info) Description 10/05/2024 Telephone [facility] MEDICINE [address] [place] [address] Jose Perry MD 505 [place] [address] Medication Question Social History Tobacco Use Types [...] encounter Miscellaneous Notes * Telephone Encounter - Rosette Balderrama RN - 10/05/2024 11:15 AM EDT TC to pt fpchome demonstration agent Bart. Coordinator states that pt needs the lorazepam order to include prior to dental appointments along with the directions to give prior to medical appointment and blood draw. Bart states that pt cannot be given medication without specific instructions written. Pt uses [facility] as main pharmacy and order would have to be sent to them in order for [facility] staff to be able to follow labels of medication. Routing to provider to review and recommendation. * Telephone Encounter - Sandi Baker - 10/05/2024 10:35 AM EDT Tc from pt requesting diazePAM (Valium) 10 MG tablet. [phone] documented in this encounter Plan of Treatment Not on file documented as of this encounter Visit Diagnoses Not on filedocumented in this encounter Care Teams Splicing Supervisor Relationship Specialty Start Date End Date Jose Perry MD [address] [place] [address] PCP - General Internal Medicine 05/22/17 documented as of this encounter
--- OUTSIDE RECORDS SUMMARY | 2024-11-17 13:12 | XMS_ITS | Encounter Summary ---
Author Organization [employer] Address 75 [facility] 7t [place] [address] Care Team Providers Care Chief Data Officer Name Role Phone Jose Perry MD Primary Care Provider +1- [phone] Reason for Visit * Reason Comments Follow-up Encounter Details Date Type Department Care Team ([facility] Contact Info) Description 11/16/2024 2:00 PM EDT Office Visit [facility] CHC MED & PEDS [address] [place], [place] [phone] Jose Perry MD 505 [place] [address] Ataxic cerebral palsy (CMS/HCC) (Primary Dx); Lower urinary tract symptoms Social History Tobacco Use Types Packs/Day Years [...] AM EDT documented as of this encounter Progress Notes * Jose Perry MD - 11/16/2024 2:00 PM EDT SUBJECTIVE oSto Bey is a 59 y.o. male who presents for Follow-up. HPI No acute interval events since the last office visit. During the last visit we discussed about the need to get a PSA and a urinalysis. Unfortunately this was not possible because patient was agitated. His vitals could not be checked as well today because he was not calm enough and would be moving back and forth. According to his boardinghouse keeper present during the encounter he had a long day and must be tired. No new symptoms reported. Patient is otherwise at his baseline according to his boardinghouse keeper. Patient Active Problem List Diagnosis Acid reflux Ataxic cerebral palsy (CMS/HCC) Constipation Insomnia Normocytic anemia Anxiety disorder Martinez's esophagus Cerebral palsy with spastic diplegia (CMS/HCC) Cognitive decline Dysphagia Macular degeneration GERD (gastroesophageal reflux disease) Anxiety Mood disorder (CMS/HCC) Obsessive-compulsive disorder Sacral wound Urinary incontinence Hospital discharge follow-up Hypoproteinemia (CMS/HCC) Cellulitis of left elbow Allergies Allergen Reactions Honey Bee Venom Current Outpatient Medications on File Prior to Visit Medication Sig Dispense Refill Ascorbic Acid (vitamin C) 250 MG tablet TAKE 1 TABLET BY MOUTH EVERY DAY 30 tablet 11 B Complex Vitamins (vitamin B complex) tablet Take 1 tablet by mouth in the morning. 30 tablet 11 bacitracin 500 UNIT/GM ointment Apply dime size amount topically to superficial cuts and wounds twice daily as needed 14 g 11 baclofen (Lioresal) 10 MG tablet TAKE 1/2 TABLET BY MOUTH THREE TIMES A DAY 45 tablet 3 clonazePAM (KlonoPIN) 0.5 MG tablet Take 1 tablet by mouth 2 times daily. At 8 am and 3 pm [] dextromethorphan-guaiFENesin (Tussin DM) 10-100 MG/5ML liquid Take 5 mL by mouth every 6 (six) hours if needed for cough for up to 10 days. 180 mL 0 diazePAM (Valium) 10 MG tablet Take 1 tablet by mouth if needed each day. 1 hour prior to dental appointment/procedure Dimethicone-Zinc Oxide 5-5 % cream Apply three times daily after toileting to skin folds and perineum as needed and let air dry 118.28 mL 11 divalproex (Depakote) 500 MG EC tablet Take 3 tablets by mouth in the morning. docusate sodium (Colace) 100 MG tablet TAKE 1 TABLET BY MOUTH TWICE DAILY IN THE AM AND AT BEDTIME,HOLD IF LOOSE STOOL, CRUSH TABLET AND DRINK WITH PLENTY OF WATER 180 tablet 3 EPINEPHrine (Epipen) 0.3 MG/0.3ML injection syringe Inject 0.3 mL (0.3 mg) as directed 1 (one) timefor 1 dose. Use 1 pen intramuscularly 0.3 mL 0 glycerin (GNP Glycerin, Adult,) 2.1 g suppository ADMINISTER 1 ER SUPPOSITORY RECTALLY IF NEEDED ONCE A DAY PER BOWEL REGIMEN 30 suppository 3 haloperidol (Haldol) 5 MG tablet Take 1 tablet by mouth 3 times daily. haloperidol (Haldol) 5 MG tablet Take 1 tablet by mouth if needed in the morning and at bedtime. Hydroactive Dressings (DynaDerm Hydrocolloid 2 x2 ) misc Apply 2 Units topically every other day. 60 each 0 Linzess 290 MCG capsule Take 1 capsule by mouth 1 (one) time each day. LORazepam (Ativan) 2 MG tablet Take 2 tablets (4 mg) by mouth 1 (one) time for 1 dose. 2 tabs 30 minutes prior to medical appointment, dental appointments and Blood draw. 2 tablet 0 magnesium hydroxide (Milk of Magnesia) 400 MG/5ML suspension TAKE 30 ML BY MOUTH EVERY OTHER DAY 360 mL 11 melatonin 10 MG tablet 1 tab at bedtime 30 tablet 11 Multiple Vitamin (Multi-Vitamin) tablet TAKE 1 TABLET BY MOUTH EVERY DAY 30 tablet 5 omeprazole (PriLOSEC) [address] capsule TAKE 1 CAPSULE BY MOUTH EVERY DAY BEFORE BREAKFAST. DO NOT CRUSH OR CHEW. 90 capsule 3 psyllium (Metamucil) 51.7 % packet DILUTE 1 PACKET INTO 8 OZ OF ORANGE JUICE DAILY 30 packet 2 SB Fib Lax [place] 33 % powder MIX 17 G INTO 8 OZ OF ORANGE JUICE DAILY 570 g 1 senna (Senokot) 8.6 MG tablet TAKE 1 TABLET BY MOUTH AT BEDTIME. HOLD FOR LOOSE STOOL. 90 tablet 2 sertraline (Zoloft) 50 MG tablet Take 1 tablet by mouth 1 (one) time each day. Sodium Chloride (Wound Wash Saline) 0.9 % solution To cleanse the lesions of the left lower limb daily 210 mL 0 Starch-Maltodextrin (Thick-It) powder 1-2 tbsp to dilute in 8 oz of water/juice as needed. 1020 g 11 Starch-Maltodextrin powder 1-2 tbsp to dilute in 9 oz 4 times a day in Juice or Water as needed 1020 g 0 zolpidem (Ambien) 10 MG tablet Take 1 tablet by mouth at bedtime. No current facility-administered medications on file prior to visit. Review of Systems Constitutional: Negative for appetite change, chills and diaphoresis. Eyes: Negative for pain and redness. Respiratory: Negative for cough and shortness of breath. Cardiovascular: Negative for leg swelling. Gastrointestinal: Negative for anal bleeding. OBJECTIVE There were no vitals filed for this visit. Physical Exam Constitutional: General: He is not in acute distress. Appearance: Normal appearance. He is not ill-appearing, toxic-appearing or diaphoretic. Pulmonary: Effort: Pulmonary effort is normal. Neurological: Mental Status: He is alert. Assessment/Plan Assessment/Plan Diagnoses and all orders for this visit: Ataxic cerebral palsy (CMS/HCC) Comments: Needs to get his Ativan prior to his medical appointments Lower urinary tract symptoms Comments: Urinalysis with PSA to be done as soon as possible Patient's residence will be contacted with the results. No other changes recommended for now. documented in this encounter Plan of Treatment Not on file documented as of this encounter Visit Diagnoses Diagnosis Ataxic cerebral palsy (CMS/HCC)- Primary Unspecified infantile cerebral palsy Lower urinary tract symptoms Other symptoms involving urinary system documented in this encounter Care Teams Chief Data Officer Relationship Specialty Start Date End Date Jose Perry MD [address] [place] [phone] PCP - General Internal Medicine 05/22/17 documented as of this encounter
--- OUTSIDE RECORDS SUMMARY | 2024-11-17 13:12 | XMS_ITS | Encounter Summary ---
Author Organization [employer] Address 75 [facility] 7t [place] [address] Care Team Providers Care Revenue Enforcement Agent Name Role Phone Jose Perry MD Primary Care Provider +1- [phone] Reason for Visit * Reason Onset Date Comments Medication Question 04/22/2023 Starch-Malto dextrin (Thick-It) powder Encounter Details Date Type Department Care Team ([facility] st Contact Info) Description 04/22/[address] [facility] CHC MED & PEDS [address] [place], [place] [phone] Jose Perry MD 505 [place] [address] Medication Question (Starch-Maltodextrin (Thick-It) powder) Social History [...] on filedocumented in this encounter Care Teams Revenue Enforcement Agent Relationship Specialty Start Date End Date Jose Perry MD [address] [place] [address] PCP - General Internal Medicine 05/22/17 documented as of this encounter
--- OUTSIDE RECORDS SUMMARY | 2024-11-17 13:12 | XMS_ITS | Encounter Summary ---
Author Organization [employer] Address 75 [facility] 7t [place] [address] Care Team Providers Care Backrest Assembler Name Role Phone Jose Perry MD Primary Care Provider +1- [phone] Reason for Visit * Reason Onset Date Comments Med Refill 04/05/2024 Encounter Details Date Type Department Care Team ([facility] st Contact Info) Description 04/05/2024 Telephone [facility] MEDICINE [address] [place] [address] Jose Perry MD 505 [place] [address] Med Refill Social History Tobacco Use Types [...] Miscellaneous Notes * Telephone Encounter - Casey Perez - 04/05/2024 12:26 PM EDT TC from pt requesting medication refill. Medications needing refill : Starch-Maltodextrin (Thick-It) powder To be sent to: [facility] [address] [place] [address] documented in this encounter Plan of Treatment Not on file documented as of this encounter Visit Diagnoses Not on filedocumented in this encounter Care Teams Backrest Assembler Relationship Specialty Start Date End Date Jose Perry MD [address] [place] [phone] PCP - General Internal Medicine 05/22/17 documented as of this encounter
--- OUTSIDE RECORDS SUMMARY | 2024-11-17 13:12 | XMS_ITS | Encounter Summary ---
Author Organization [employer] Address 75 [facility] 7t [place] [address] Care Team Providers Care Cosmetic Consultant Name Role Phone Jose Perry MD Primary Care Provider +1- [phone] Encounter Details Date Type Department Care Team ([facility] st Contact Info) Description 04/10/2023 Orders Only [facility] CHC MED & PEDS [address] [place], [place] [phone] Jose Perry MD 505 [place], [place] [phone] Wound of sacral region, initial encounter (Primary [...] palsy documented in this encounter Care Teams Cosmetic Consultant Relationship Specialty Start Date End Date Jose Perry MD [address] [place] [address] PCP - General Internal Medicine 05/22/17 documented as of this encounter
--- OUTSIDE RECORDS SUMMARY | 2024-11-17 13:12 | XMS_ITS | Encounter Summary ---
Author Organization [employer] Address 75 [facility] 7 [place] [address] Care Team Providers Care Installation And Service Technician Name Role Phone Jose Perry MD Primary Care Provider +1- [phone] Reason for Visit * Reason Onset Date Comments Med Refill 06/25/2022 Encounter Details Date Type Department Care Team ([facility] st Contact Info) Description 06/25/2022 Telephone [facility] MEDICINE [address] [place], [place] [phone] Jose Perry MD 505 [place], [place] [phone] Med Refill Social History Tobacco Use Types [...] on filedocumented in this encounter Care Teams Installation And Service Technician Relationship Specialty Start Date End Date Jose Perry MD 505 [place] [address] PCP - General Internal Medicine 05/22/17 documented as of this encounter
--- OUTSIDE RECORDS SUMMARY | 2024-11-17 13:12 | XMS_ITS | Encounter Summary ---
Author Organization [employer] Address 75 [facility] 7t [place] [address] Care Team Providers Care Restaurant Cook Name Role Phone Jose Perry MD Primary Care Provider +1- [phone] Reason for Visit * Reason Onset Date Comments Durable Medical Equipment 04/05/2024 Encounter Details Date Type Department Care Team ([facility] st Contact Info) Description 04/05/2024 Telephone [facility] MEDICINE [address] [place] [address] Jose Perry MD 505 [place] [address] Durable Medical Equipment Social History Tobacco Use [...] Faxed to [facility] T[facility] from Zelda the site auditor at the patients correction calling to request pull ups size medium and reusable bed pads * Telephone Encounter - Casey Monteiro - 04/05/2024 12:28 PM EDT Tc from Zelda the site auditor at the patients correction calling to request pull ups size medium and reusable bed pads documented in this encounter Plan of Treatment Not on file documented as of this encounter Visit Diagnoses Diagnosis 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
--- OUTSIDE RECORDS SUMMARY | 2024-11-17 13:12 | XMS_ITS | Encounter Summary ---
Author Organization [employer] Address [address] [facility] 7t [place] [address] Care Team Providers Care Adjunct Psychology Faculty Member Name Role Phone Jose Perry MD Primary Care Provider +1- [phone] Reason for Visit * Reason Onset Date Comments Med Refill 03/20/2023 Encounter Details Date Type Department Care Team ([facility] st Contact Info) Description 03/20/2023 Telephone [facility] MED & PEDS [address] [place], [place] [phone] Jose Perry MD 505 [place] [address] Med Refill Social History Tobacco Use Types [...] - 03/20/2023 10:35 AM EDT Tc from A requesting medication refill on bacitracin 500 unit/gram topical ointment and acetaminophen (Tylenol 8 Hour) 650 MG ER tablet documented in this encounter Plan of Treatment Not on file documented as of this encounter Visit Diagnoses Not on filedocumented in this encounter Care Teams Adjunct Psychology Faculty Member Relationship Specialty Start Date End Date Jose Perry MD [address] [place] [id number] PCP - General Internal Medicine 05/22/17 documented as of this encounter
--- OUTSIDE RECORDS SUMMARY | 2024-11-17 13:12 | XMS_ITS | Encounter Summary ---
Author Organization [employer] Address [address] [place] [address] [address] [place] [address] Care Team Providers Care Joint Creaser Name Role Phone Jose Perry MD Primary Care Provider +1- [phone] Reason for Referral * Consultation (Routine) - Closed Specialty Diagnoses / Procedures Referred By Antwan t Referred To Contact Nutrition Diagnoses Chronic idiopathic constipation Hypoproteinemia (CMS/HCC) Jose Perry MD [address] [place] [address] Phone: tel: fax: Referral ID Status Reason Start Date Expiration Date V isits Requested Visits Authorized [id number] Closed Consult and Treat 07/30/2024 07/30/2025 1 1 Encounter Details Date Type Department Care Team ([facility] Contact Info) Description 07/30/2024 Orders Only [facility] CHC MED & PEDS [address] [place] [address] Jose Peryr MD [address] [place] [address] Chronic idiopathic constipation (Primary Dx); Hypoproteinemia (CMS/HCC); [...] venom documented in this encounter Care Teams Joint Creaser Relationship Specialty Start Date End Date Jose Perry MD [address] [place] [phone] PCP - General Internal Medicine 05/22/17 documented as of this encounter
--- OUTSIDE RECORDS SUMMARY | 2024-11-17 13:12 | XMS_ITS | Encounter Summary ---
Author Organization [employer] Address [address] [facility] 7t [place] [address] Care Team Providers Care Field Foreman Name Role Phone Jose Perry MD Primary Care Provider +1- [phone] Encounter Details Date Type Department Care Team (Late st Contact Info) Description 03/12/2023 Orders Only [facility] CHC MED & PEDS [address] [place] [address] Jose Perry MD [address] [place] [address] Chronic idiopathic constipation Social History Tobacco Use [...] constipation documented in this encounter Care Teams Field Foreman Relationship Specialty Start Date End Date Jose Perry MD [address] [place] [address] PCP - General Internal Medicine 05/22/17 documented as of this encounter
--- OUTSIDE RECORDS SUMMARY | 2024-11-17 13:12 | XMS_ITS | Clinical Summary ---
Author Organization [employer] Address [address] [facility] 7t [place] [address] Care Team Providers Care Coverage Specialist Rn Name Role Phone Jose Perry MD Primary Care Provider [phone]- [phone] Allergies Active Allergy Reactions Criticality Noted Date Comments Honey Bee Venom 10/31/2022 Medications Linzess 290 MCG capsule Take 1 capsule by mouth 1 (one) time each day. 023 Active sertraline (Zoloft) 50 MG tablet Take 1 tablet by mouth 1 (one) time each day. 023 Active clonazePAM (KlonoPIN) 0.5 MG tablet Take 1 tablet by mouth 2 times daily. At 8 am and 3 pm 023 Active divalproex (Depakote) 500 MG EC tablet Take 3 tablets by mouth in the morning. 023 Active haloperidol (Haldol) 5 MG tablet Take 1 tablet by mouth 3 times daily. 023 Active haloperidol (Haldol) 5 MG tablet Take 1 tablet by mouth if needed in the morning and at bedtime. Active Hydroactive Dressings (DynaDerm Hydrocolloid 2 x2 ) misc Apply 2 Units topically every other day. 60 each 023 Active Starch-Maltode xtrin (Thick-It) powder 1-2 tbsp to dilute in 8 oz of water/juice as needed. 1020 g 11 023 Active Starch-Maltode xtrin powderIndicati ons:Ataxic cerebral palsy (CMS/HCC) 1-2 tbsp to dilute in 9 oz 4 times a day in Juice or Water as needed 1020 g 023 Active diazePAM (Valium) 10 MG tablet Take 1 tablet by mouth if needed each day. 1 hour prior to dental appointment/proce dure 023 Active zolpidem (Ambien) 10 MG tablet Take 1 tablet by mouth at bedtime. 023 Active melatonin 10 MG tabletIndicati ons:Primary insomnia 1 tab at bedtime 30 tablet 11 023 Active Sodium Chloride (Wound Wash Saline) 0.9 % solutionIndica tions:Lacerati on of left lower extremity, initial encounter To cleanse the lesions of the left lower limb daily 210 mL 023 Active B Complex Vitamins (vitamin B complex) tabletIndicati ons:Annual physical exam Take 1 tablet by mouth in the morning. 30 tablet 11 024 Active Ascorbic Acid (vitamin C) 250 MG tabletIndicati ons:Laceration of left lower extremity, initial encounter TAKE 1 TABLET BY MOUTH EVERY DAY 30 tablet 11 024 Active psyllium (Metamucil) 51.7 % packet DILUTE 1 PACKET INTO 8 OZ OF ORANGE JUICE DAILY 30 packet 2 024 Active magnesium hydroxide (Milk of Magnesia) 400 MG/5ML suspensionIndi cations:Slow transit constipation TAKE 30 ML BY MOUTH EVERY OTHER DAY 360 mL 11 024 Active SB Fib Lax [place] 33 % powder MIX 17 G INTO 8 OZ OF ORANGE JUICE DAILY 570 g 1 024 Active docusate sodium (Colace) 100 MG tabletIndicati ons:Slow transit constipation TAKE 1 TABLET BY MOUTH TWICE DAILY IN THE AM AND AT BEDTIME, HOLD IF LOOSE STOOL, CRUSH TABLET AND DRINK WITH PLENTY OF WATER 180 tablet 3 024 Active omeprazole (PriLOSEC) [address] capsuleIndicat ions:Gastroeso phageal reflux disease without esophagitis TAKE 1 CAPSULE BY MOUTH EVERY DAY BEFORE BREAKFAST. DO NOT CRUSH OR CHEW. 90 capsule 3 024 Active Dimethicone-Zi nc Oxide 5-5 % creamIndicatio ns:Wound of sacral region, initial encounter,Othe r urinary incontinence Apply three times daily after toileting to skin folds and perineum as needed and let air dry 118.28 mL 11 025 Active EPINEPHrine (Epipen) 0.3 MG/0.3ML injection syringeIndicat ions:Allergy to honey bee venom Inject 0.3 mL (0.3 mg) as directed 1 (one) time for 1 dose. Use 1 pen intramuscularly 0.3 mL 025 Active bacitracin 500 UNIT/GM ointment Apply dime size amount topically to superficial cuts and wounds twice daily as needed 14 g 11 025 Active Multiple Vitamin (Multi-Vitamin ) tabletIndicati ons:Normocytic anemia TAKE 1 TABLET BY MOUTH EVERY DAY 30 tablet 5 025 Active senna (Senokot) 8.6 MG tablet TAKE 1 TABLET BY MOUTH AT BEDTIME. HOLD FOR LOOSE STOOL. 90 tablet 2 025 Active LORazepam (Ativan) 2 MG tabletIndicati ons:Mood disorder (CMS/HCC) Take 2 tablets (4 mg) by mouth 1 (one) time for 1 dose. 2 tabs 30 minutes prior to medical appointment, dental appointments and Blood draw. 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 2 tabs 30 minutes prior to medical appointment, dental appointments and Blood draw. 2 tablet 025 10/25 Discontinued( Reorder (will not trigger notification to Pharmacy)) glycerin (GNP Glycerin, Adult,) 2.1 g suppositoryInd ications:Chron ic idiopathic constipation ADMINISTER 1 ER SUPPOSITORY RECTALLY IF NEEDED ONCE A DAY PER BOWEL REGIMEN 30 suppository 3 025 11/02 Discontinued( Reorder (will not trigger notification to Pharmacy)) dextromethorph an-guaiFENesin (Tussin DM) 10-100 MG/5ML liquidIndicati ons:Other cough Take 5 mL by mouth every 6 (six) hours if needed for cough for up to 10 days. 180 mL 025 11/12 Active Problems Problem Noted Date Diagnosed Date [...] Will refer to Wound care clinic at [facility] and send Hydrocolloid. Will hold off on [...] Encounters Date Type Department Care Team Description 11/16/2024 2:00 PM EDT Office Visit [facility] MED & PEDS [address] [place] [address] Jose Perry MD Ataxic cerebral palsy ([facility]) (Primary Dx); Lower urinary tract symptoms 11/16/2024 Travel 11/04/2024 Patient Outreach [facility] [address] [place] [phone] Jose Perry MD Pre-visit Planning (Pre visit planning LVM ) 11/04/2024 Refill [facility] MED & PEDS [address] [place] [address] Jose Perry MD Ataxic cerebral palsy ([facility]); Cerebral palsy with spastic diplegia ([facility]) 11/04/[address] [address] Jose Perry MD Referral 11/02/2024 4:00 PM EDT Office Visit [facility] P[facility] [address] [place] [address] Jose Perry MD Lower urinary tract symptoms (Primary Dx); Chronic idiopathic constipation; Other cough 11/02/2024 Travel 10/25/2024 Refill [facility] [address] [place] [address] Jose Perry MD Mood disorder ([facility]/HCC); Chronic idiopathic constipation 10/25/2024 Telephone [facility] [address] [place] [address] Jose Perry MD sarah back needed 10/05/2024 Orders Only [facility] [address] [place] [address] Jose Perry MD Cognitive decline (Primary Dx); Mood disorder (CMS/HCC) 10/05/2024 Telephone [facility] [address] [place] [address] Jose Perry MD Medication Question 10/01/2024 Refill [facility] MED & PED[facility] 505 [facility] [place] [place] [address] Jose Perry MD 10/01/2024 Population Health Risk [facility] () Department [address] [place] [phone] Provider, Population Health Generic 09/16/2024 10:00 AM EST Clinical Support [facility] DI[facility]ET[facility]TR[facility] [address] [place] [address] Weight loss (Primary Dx) 09/16/2024 Travel 09/15/2024 Telephone [facility] [address] [facility] [place] [address] Jose Perry MD Nurse Triage 08/19/2024 3:00 PM EST Clinical Support [facility] [address] [facility] [place] [address] Weight loss (Primary Dx) 08/19/2024 Travel from Last 3 Months Immunizations Name Administration Dates Next Due Hep B, adult 10/01/2023 Influenza injectable quadriv alent IIV4 with preservative 04/13/2019,05/22/2017 Influenza injectable quadriv alent preservative free 05/30/2022,04/20/2021,04/17/2020,2018,08/17/2016 Influenza, IIV3, injectable 04/24/2023, 2,06/25/2011 Influenza, Injectable, MDCK, preservative free 05/25/2024 Moderna Covid-19 Vaccine 12+ 04/24/2023,02/01/20,07/06/2021 Tdap 05/14/2019,08/11/2018 Zoster, Recombinant 11/17/2023,09/15/2023 Social History [...] Sign Reading Time Taken Comments Blood Pressure 153/119 11/02/2024 4:29 PM EDT Pulse 62 11/02/2024 4:29 PM EDT Temperature 37.1 ??C (98.8 ??F) 12/19/2023 11:42 AM E DT Respiratory Rate 20 11/02/2024 4:29 PM EDT Oxygen Saturation 94% 11/02/2024 4:29 PM EDT Inhaled Oxygen Concentration - - Weight 86.2 kg (190 lb) 11/02/2024 4:29 PM EDT Height 172.7 cm (5' 8 ) 11/02/2024 4:29 PM EDT Body Mass Index 28.89 11/02/2024 4:29 PM EDT Plan of Treatment Health Maintenance Due Date Last Done Comments CT Colonography 1967 Colonoscopy 1967 Depression Screening 1967 FIT 1967 FOBT 1967 Lipid Panel 1967 Sigmoidoscopy 1967 Alcohol/Substance Use Screening 1979 Pneumococcal Vaccine: 50+ Years (1 of 1 - PCV) 2017 Hepatitis B Vaccines (2 of 3 - 19+ 3-dose series) 10/29/2023 10/01/2023 COVID-19 Vaccine ( season) 2024 04/24/2023, 01/31/2022, 07/06/2021, Additional history exists SDOH Screening 09/10/2024 09/10/2023 Tobacco Screening 11/03/2025 11/03/2024 Colorectal Cancer Screening 03/29/2026 FIT DNA/Cologuard 03/29/2026 [...] Procedure Name Priority Date/Time Associated Diagnosis Comments URINALYSIS, COMPLETE, WITH REFLEX TO CULTURE Routine 09/16/2024 9:00 AM EST Urinary incontinence, unspecified type HEPATITIS C ANTIBODY Routine 09/15/2023 11:14 AM EST Annual physical exam HIV 1/2 ANTIGEN/ANTIBODY, FOURTH GENERATION W/RFL Routine 09/15/2023 11:14 AM EST Annual physical exam from Last 3 Months or Most Recently Relevant to Health Maintenance Results * Urinalysis, Complete, with Reflex to Culture (09/16/2024 9:00 AM EST) Color Urine Yellow [facility] Appearance Urine Clear [facility] PH 8.0 5.0 - 9.0 [facility] Glucose Urine UA Negative Negative mg/dL [facility] Urine Blood Negative Negative [facility] Specific Kinta - Urine 1.010 1.005 - 1.025 [facility] Urine Protein Negative Neg-Trace mg/dL [facility] Urine Ketones Negative Negative mg/dL [facility] Nitrite Urine Negative Negative [facility] Leukocyte Esterase Urine Negative Negative [facility] RBC Urine 0-2 0 - 2 /HPF [facility] Urine WBC 0-5 0 - 5 /HPF [facility] Urine Squamous Epithelial Cell 0-2 0 - 2 /HPF [facility] Urine Bacteria None Seen None Seen [facility] Hyaline Casts, Urine 0-2 0 - 2 /LPF [facility] Urine 09/16/2024 9:00 AM EST 09/16/2024 2:12 PM EST Narrative [facility] - 09/16/2024 2:47 PM EST [id number], Clean Catch Jose Perry MD LAB URINE ORDERABLES Final Result Performing Organization Address [facility] Co de Phone Number [facility] [address] [place] [phone] * Hepatitis C Ab (09/15/2023 11:14 AM EST) Pathologist [facility] Hepatitis C Antibody Nonreactive Nonreactive [facility] Comment:Antibodies to HCV no t detected; does not exclude early acuteHCV infection. Blood Venous blood specimen / Unknown 09/15/2023 11:14 AM EST 09/15/2023 2:35 PM EST Jose Perry MD LAB BLOOD ORDERABLES Final Result Performing Organization Address [facility] Number [facility] [address] [place] [phone] * HIV-1/2 Antigen and Antibodies, Fourth Generation, with Reflexes (09/15/2023 11:14 AM EST) [facility] HIV AB/AG Nonreactive Nonreactive [facility] Comment:HIV-1 p24 Ag and/or HIV-1/HIV-2 Ab not detected.A test result that is nonreactive does not exclude thepossibility of exposure to or infection with HIV-1 and/orHIV-2. Nonreactive results in this assay for individualswith prior exposure to HIV-1 and/or HIV-2 may be due toantigen and antibody levels that are below the limit ofdetection of this assay.The [employer] HIV Ag/Ab Combo assay result andsupplemental assay results should be interpreted inconjunction with the patient's clinical presentation,history and other laboratory results. If the results areinconsistent with clinical evidence, additional testing issuggested to confirm the result. Blood Venous blood specimen / Unknown 09/15/2023 11:14 AM EST 09/15/2023 2:35 PM EST Jose Perry MD LAB BLOOD ORDERABLES Final Result [facility] [address] [place] [address] [phone] from Last 3 Months or Most Recently Relevant to Health Maintenance Insurance MEDICARE Care Teams Coverage Specialist Rn Relationship Specialty Start Date End Date Jose Perry MD [address] [place] [phone] PCP - General Internal Medicine 05/22/17
--- OUTSIDE RECORDS SUMMARY | 2024-11-17 13:12 | XMS_ITS | Clinical Summary ---
Author Organization [address] [facility] Address [address] [place] [address] Phone Care Team Providers Care Materials Technician Name Role Phone Jose Perry MD Primary Care Provider [phone] -[phone] Allergies Active Allergy Reactions Criticality Noted Date Comments Bee Venom Protein (Honey Bee) 2022 Medications No known medications Encounters Date Type Department Care Team Description 11/01/2024 3:30 PM EDT Consult Orthopedic Surgery [facility] [address] [facility] [address] [place] [phone] Ziyad Estrada, DPM Difficulty walking (Primary Dx); Nail disorder, unspecified; Contracture of joint of left foot; Contracture of joint of right foot from Last 3 Months Social History Tobacco Use Types Packs/Day Years Used Date Smoking Tobacco: Never Assessed Sex and Gender Information Value Date Recorded Sex Assigned at Not on file Legal Sex Male 5:50 PM EST Gender Identity Not on file Sexual Orientation Not on file Last Filed Vital Signs Vital Sign Reading Time Taken Comments Blood Pressure - - Pulse - - Temperature - - Respiratory Rate - - Oxygen Saturation - - Inhaled Oxygen Concentration - - Weight 75.3 kg (166 lb) 11/01/2024 3:55 PM EDT Height 172.7 cm (5' 8 ) 11/01/2024 3:55 PM EDT Body Mass Index 25.24 11/01/2024 3:55 PM EDT Plan of Treatment Health Maintenance Due Date Last Done Comments Pneumococcal Vaccine: 50+ Years (1 of 1 - PCV) 2017 Cholesterol Screening (Lipid Panel) 06/22/2022 Depression Screening 06/22/2022 Hepatitis C Screening 06/22/2022 Medicare Annual Wellness Visit 06/22/2022 Social Influencers of Health Screening 06/22/2022 Hepatitis B Vaccines (2 of 3 - 19+ 3-dose series) 10/29/2023 10/01/2023 COVID-19 Vaccine (2023- season) 2024 04/24/2023, 01/31/2022, 07/06/2021, Additional history exists Colorectal Cancer Screening: FIT-DNA (Cologuard) 03/29/2026 03/29/2023, 03/29/2023 DTaP,Tdap,and Td Vaccines (3 - Td or Tdap) 05/14/2029 05/14/2019, 08/11/2018 HIV Screening Completed 09/15/2023 Zoster Vaccines Completed 11/17/2023, [...] age to complete this topic Meningococcal B Vaccine Aged Out No l onger eligible based on patient's age to complete this topic Pneumococcal Vaccine: Pediatrics (0 to 5 Years) and At-Risk Patients (6 to 64 Years) Aged Out No longer eligible based on patient's age to complete this topic RSV Immunization Patients Under 20 months Aged Out No longer eligible based on patient's age to complete this topic Varicella Vaccines Aged Out No longer eligible based on patient's age to complete this topic Insurance MEDICARE MEDICAID - [place] Care Teams Materials Technician Relationship Specialty Start Date End Date Jose Perry MD [address] [place] [phone] PCP - General Internal Medicine 06/30/24
--- OUTSIDE RECORDS SUMMARY | 2024-11-17 13:12 | XMS_ITS | Encounter Summary ---
Author Organization [employer] Address [address] [facility] 7t [place] [address] Care Team Providers Care Glass Toughening Operator Name Role Phone Jose Perry MD Primary Care Provider [phone]- [phone] Reason for Visit * Reason Onset Date Comments Med Refill 12/12/2022 Encounter Details Date Type Department Care Team ([facility] st Contact Info) Description 12/12/2022 Telephone [facility] [address] [place] [address] Jose Perry MD [address] [place] [phone] Med Refill Social History Tobacco Use Types [...] on filedocumented in this encounter Care Teams Glass Toughening Operator Relationship Specialty Start Date End Date Jose Perry MD [address] [place] [phone] PCP - General Internal Medicine 05/22/17 documented as of this encounter
--- OUTSIDE RECORDS SUMMARY | 2024-11-17 13:12 | XMS_ITS | Encounter Summary ---
Author Organization [employer] Address [address] [facility] 7t [place] [address] Care Team Providers Care Field Consultant Name Role Phone Jose Perry MD Primary Care Provider +1- [phone] Reason for Visit * Reason Onset Date Comments Med Refill 06/14/2024 Encounter Details Date Type Department Care Team ([facility] Contact Info) Description 06/14/2024 Telephone [facility] CH[facility] MED & PEDS [address] [place], [place] [phone] Jose Perry MD [address] [place] [address] Med Refill Social History Tobacco Use Types [...] - 06/14/2024 11:09 AM EST TC from [facility] requesting medication refill. Medications needing refill : psyllium (Metamucil) 51.7 % packet To be sent to: [facility] [address] [place] [address] documented in this encounter Plan of Treatment Not on file documented as of this encounter Visit Diagnoses Not on filedocumented in this encounter Care Teams Field Consultant Relationship Specialty Start Date End Date Jose Perry MD [address] [place] [phone] PCP - General Internal Medicine 05/22/17 documented as of this encounter
--- OUTSIDE RECORDS SUMMARY | 2024-11-17 13:12 | XMS_ITS | Encounter Summary ---
Author Organization [employer] Address [address] [facility] [address] [place] [address] Care Team Providers Care Surgical Services Director Name Role Phone Jose Perry MD Primary Care Provider +1 [phone] Encounter Details Date Type Department Care Team (Latest Contact Info) Description 11/16/2024 Travel Social History Tobacco Use Types Packs/Day [...] on filedocumented in this encounter Care Teams Surgical Services Director Relationship Specialty Start Date End Date Jose Perry MD [address] [place] [phone] PCP - General Internal Medicine 05/22/17 documented as of this encounter
--- OUTSIDE RECORDS SUMMARY | 2024-11-17 13:12 | XMS_ITS | Encounter Summary ---
Author Organization [employer] Address [address] [facility] [address] 7t [place] [address] Care Team Providers Care Solar Energy Specialist Name Role Phone Jose Perry MD Primary Care Provider [phone]- [phone] Encounter Details Date Type Department Care Team ([facility] st Contact Info) Description 07/07/2023 Orders Only [facility] MED & PEDS [address] [place], [place] [phone] Jose Perry MD [address] [place] [address] Social History Tobacco Use Types Packs/Day Years [...] on filedocumented in this encounter Care Teams Solar Energy Specialist Relationship Specialty Start Date End Date Jose Perry MD [address] [place] [phone] PCP - General Internal Medicine 05/22/17 documented as of this encounter
[2024-11-17 14:27] LABS: Appearance Urine Turbid; Color Urine Yellow; Glucose Urine UA Negative (Negative); Leukocyte Esterase Urine Negative (Negative); Nitrite Urine Negative (Negative); PH >= 9.0 (5.0-9.0); Specific Gravity - Urine 1.015 (1.005-1.025); Urine Blood Negative (Negative); Urine Ketones Negative (Negative); Urine Protein Negative (Neg-Trace)
[2024-11-17 14:32] LABS: Bacteria Urine None Seen (None Seen); Hyaline Casts Urine 0-2 /LPF (0-2); RBC Urine 0-2 /HPF (0-2); Squamous Epithelial Cell Urine 0-2 /HPF (0-2); WBC Urine 0-5 /HPF (0-5)
== END 2024-11-17 11:35 | disposition home or self-care (01) ==
LOC: HO.CHCLNP 11:34
PROVIDERS: Visit Provider Internal Medicine
DX: R39.9 Unspecified symptoms and signs involving the genitourinary system (principal)
CPT/HCPCS: 81001

== ENCOUNTER 2024-12-22 14:49 | Outpatient (AMB) | payer MEDICARE, MEDICAID, SELFPAY ==
--- NOTE | 2024-12-22 14:52 | MHC.OFFVIS ---
Vital Signs 12/22/24 15:07 Height 5 ft 8 in BP 114/72 Blood Pressure Location Lt radial Position Sitting Pulse 68 Pulse Source Pulse Oximeter Pulse Oximetry (%) 96 Oxygen Delivery Method Room Air Comment Weight to be provided at a later time. Intake Visit Reasons: Colonoscopy screening Intake Note: Established patient, previously est with [facility]; being seen today for recall colo screening. Last w/ Dr. Portillo 2017. CC; Mgmt of [facility]IC and recall colo. 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 Pt weight unknown at this time but will be provided at a later time. No specific concerns or sx at this time. Miter Sawyer Required: No Accompanied by: Energy Efficiency Finance Manager Allergies bee pollen [BEE STINGS] Allergy (Severe, Unverified 09/17/23 14:50) ANAPHYLAXIS bee stings Allergy (Unknown, Uncoded 09/17/23 14:50) Anaphylaxis HPI HPI Colonoscopy screening: Details: 59-year-old male here for preprocedural meeting to discuss a screening colonoscopy. He is referred by [facility]. He also was seen in the past by Gin Blanco. PMX OCD Delayed emotional development Constipation Dysphagia Anxiety Ataxic cerebral palsy GERD Family history of colorectal cancer * SURGICAL HISTORY COLONOSCOPY -2018= NEGATIVE EXAM BUT POSITIVE COLOGUARD 03/2023 * ALLERGIES Bees * [employer] LABS: none since 2023 TODAY'S VISIT Apparently in the past he was combative and unable to cooperate with prep and preprocedure requirements. We will see if this is improved. He is here today with 2 staff members who seem to think they will be able to prep him since he is more controlled. There are no prior known problems with anesthesia or sedation. There are no known cardiac or respiratory problems. There are no infectious disease problems. His family history is unknown. [facility] Medical History Screening for malignant neoplasm of colon declined Encounter for screening colonoscopy Screen for colon cancer Assistance needed for ambulation and movement Dysphagia Chronic constipation OCD (obsessive compulsive disorder) Anxiety Delayed emotional development Surgical History Hx of colonoscopy Family History Unknown No problems noted. Social History Household Members: Other Household Members Other:: Care Home Housing Other:: Care Home Are you a primary home health care physician to a significant other at home: No Do you presently have visiting nurse or other home services: No Alcohol intake: never Current occupational status: disabled Review of Systems Const Denies fatigue, Denies fever(s), Denies night sweats, Denies poor appetite and Denies weight loss ENT Reports Normal hearing present, Denies dental pain, Denies dysphagia, Denies hearing loss, Denies mouth pain, Denies odynophagia, Denies throat swelling, Denies tongue swelling and Reports other (Dentition adequate) Card Reports no additional complaints Resp Reports no additional complaints GI Details: Denies abdominal pain, Denies melena, Denies bloating, Denies hematochezia, Reports constipation, Denies GI cramping, Denies dysphagia, Denies excessive flatus, Denies early satiety, Denies heartburn, Denies diarrhea, Denies nausea, Denies odynophagia, Denies vomiting and Denies hematemesis Skin/Breast Denies pruritus, Denies lesions, Denies rash and Denies jaundice Neuro Reports Normal hearing present and Denies Abnormal speech present Psych Reports difficulty concentrating Endo Denies fatigue Aller/Immun Denies throat swelling and Denies tongue swelling Physical Exam Vital Signs: Last Vital Signs Pulse 68 12/22/24 15:07 BP 114/72 12/22/24 15:07 Pulse Ox 96 12/22/24 15:07 Oxygen Delivery Method Room Air 12/22/24 15:07 Const General: cooperative, no acute distress, well developed and well groomed Nutritional Appearance: average body habitus and well nourished Orientation/consciousness: oriented to person, oriented to place and Other orientation findings Limitations: behavioral limitations, No language barrier and other limitations HEENT Head: Yes normocephalic and Yes atraumatic Eyes General: appearance normal, both eyes and all related structures Pupils: Equal, round and reactive pupils present Neck Neck: Yes normal visual inspection and Yes no lymphadenopathy Thyroid: Thyroid normal Resp Effort & Inspection: normal respiratory effort and able to speak in complete sentences Auscultation: clear to auscultation bilaterally Cardio Rate: regular rate Rhythm: regular rhythm Heart sounds: Normal, physiologic split S2 sound present Peripheral pulses: radial pulses present and posterior tibial pulses present GI Inspection: No distended and No Abdominal panniculus present Palpation (GI): Soft to palpation, nontender, no guarding, not rigid and No hepatosplenomegaly present Percussion: Yes normal to percussion Auscultation: normal bowel sounds Rectal Exam - Male: Yes deferred Skin General skin exam: no rashes or lesions noted, turgor normal, skin not dry, no jaundice, No spider nevi and no striae Rashes: no rashes Nails: normal Neuro General: oriented to person and oriented to place Cranial nerves: Yes Equal, round and reactive pupils present and Yes Normal hearing present Speech: No Abnormal speech present Extrem General: Yes normal to inspection, No clubbing, No cyanosis and No edema Psych Appearance: grossly normal and well kempt Mental Status: other Speech and movement: Other speech and movement exam findings present (Psych) Affect: Other affect and mood findings present Attitude: cooperative Thought process: not confabulating and Other thought process findings present Thought content: other Insight: Poor insight present (Psych) Judgement: Poor judgement present (Psych) Assessment & Plan Assessment & Plan (1) Positive colorectal cancer screening using Cologuard test: Code(s): R19.5 - Other fecal abnormalities Category: Medical (2) Family history of colon cancer: Code(s): Z80.0 - Family history of malignant neoplasm of digestive organs Category: Medical (3) Delayed emotional development: Code(s): F88 - Other disorders of psychological development Category: Medical (4) Ataxic cerebral palsy: Code(s): G80.4 - Ataxic cerebral palsy Category: Medical (5) Combative behavior: Code(s): R46.89 - Other symptoms and signs involving appearance and behavior Category: Medical Plan Apparently in the past he was combative and unable to cooperate with prep and preprocedure requirements. We will see if this is improved. He is here today with 2 staff members who seem to think they will be able to prep him since he is more controlled. There are no prior known problems with anesthesia or sedation. There are no known cardiac or respiratory problems. There are no infectious disease problems. Is a family history of colorectal cancer and a positive Cologuard screening test. Orders: Orders Complete Blood Count Auto Diff 12/22/24 R19.5 - Other fecal abnormalities, Z80.0 - Family history of malignant neoplasm of digestive organs Comprehensive Met. Panel 12/22/24 R19.5 - Other fecal abnormalities, Z80.0 - Family history of malignant neoplasm of digestive organs Colonoscopy - GI Use Only 12/22/24 R19.5 - Other fecal abnormalities, Z80.0 - Family history of malignant neoplasm of digestive organs Medications: New sod sulf-pot chloride-mag sulf 1.479-0.188- 0.225 gram (Sutab) PO PER PKG DIR for colonoscopy prep 24 tabs 0RF Coding Level of Care Code New Pt Level 3 (66340) Diagnoses Positive colorectal cancer screening using Cologuard test R19.5 Family history of colon cancer Z80.0 Delayed emotional development F88 Ataxic cerebral palsy G80.4 Combative behavior R46.89
--- OUTSIDE RECORDS SUMMARY | 2024-12-22 14:52 | XMS_ITS | Encounter Summary ---
Author Organization [employer] Address [address] [facility] 7 [place] [address] Care Team Providers Care Offal Worker Name Role Phone Jose Perry MD Primary Care Provider Reason for Visit * Reason Onset Date Comments Medication Question 04/17/2023 Encounter Details Date Type Department Care Team ([facility] st Contact Info) Description 04/17/2023 Telephone [facility] CH[facility] MED & PEDS [address] [place], [place] [phone] Jose Perry MD [address] [place] [address] Medication Question Social History Tobacco Use Types [...] - 04/17/2023 9:27 AM EDT Tc from [facility] calling to inform they do not have medication Dimethicone-ZincOxide 5-5 % cream. States they only have the Dimethicone-Zinc Oxide 1-10% cream. Please call pharmacy to clarify . documented in this encounter Plan of Treatment Upcoming Encounters Date Type Department Care Team (Late st Contact Info) Description 03/01/2025 10:30 AM EDT Office Visit [facility] MED & PEDS [address] [place], [place] [phone] Jose Perry MD [address] [place] [address] documented as of this encounter Visit Diagnoses Not on filedocumented in this encounter Care Teams Offal Worker Relationship Specialty Start Date End Date Jose Perry MD [address] [place] [address] PCP - General Internal Medicine 05/22/17 documented as of this encounter
[2024-12-22 15:07] VITALS: BP 114/72; PULSE 68; O2SAT 96
== END 2024-12-22 15:27 | disposition home or self-care (01) ==
PROVIDERS: PCP Internal Medicine; Visit Provider Nurse Practitioner
DX: R19.5 Other fecal abnormalities (principal); Z80.0 Family history of malignant neoplasm of digestive organs; F88 Other disorders of psychological development; G80.4 Ataxic cerebral palsy; R46.89 Other symptoms and signs involving appearance and behavior
CPT/HCPCS: 99203

== ENCOUNTER → 2024-12-22 14:49 | Outpatient (BNVA) | payer MEDICARE, SELFPAY | PROVIDERS: PCP Internal Medicine; Visit Provider Nurse Practitioner | DX: Z01.818 Encounter for other preprocedural examination (principal); R19.5 Other fecal abnormalities; F88 Other disorders of psychological development; G80.4 Ataxic cerebral palsy; Z80.0 Family history of malignant neoplasm of digestive organs | CPT/HCPCS: 99202 ==